=== PATIENT | female | born 1970 | race Caucasian/White ===

== ENCOUNTER → 2017-08-18 09:05 | Outpatient (CLI) | payer OTHER, SELFPAY | PROVIDERS: Visit Provider Internal Medicine Cardiovascular Disease | DX: R07.9 Chest pain, unspecified (principal) | CPT/HCPCS: 93306; Q9957; A4216; C8929 ==

== ENCOUNTER → 2018-07-11 21:15 | Outpatient (CLI) | payer OTHER, SELFPAY ==
[2018-07-11 19:52] VITALS: BMI 54.8
[2018-07-11 21:28] LABS: Absolute Lymphocyte Count 3.06 X10^3/ul (0.83-4.51); Absolute Neutrophil Count 5.8 X10^3/uL (2.0-7.7); Basophil# 0.04 X10^3/uL; Basophil% 0.4 % (0-1); Eosinophil# 0.26 X10^3/uL; Eosinophils% 2.7 % (0-5); Hematocrit 38.9 % (37-47); Hemoglobin 12.3 g/dl (12.0-15.0); Lymphocyte # 3.06 X10^3/ul (4.0); Lymphocyte % 31.3 % (19-41); Mean Corp Hgb Conc 31.6 g/gl (32-36); Mean Corpuscular Hgb 26.6 pg (27.0-32.0); Mean Corpuscular Volume 84.2 fL (81-99); Mean Platelet Vol. 10.5 fl (6.2-12.0); Monocyte# 0.56 X10^3/uL; Monocyte% 5.7 % (0-10); Neutrophil # 5.82 X10^3/uL (2.7-7.7); Neutrophil % 59.5 % (47-70); Platelet Count 438 K/mm3 (150-450); RBC Distribution Width CV 13.8 % (11.6-14.6); RBC Distribution Width SD 41.3 fl (35.1-43.9); Red Blood Count 4.62 M/mm3 (4.2-5.4); White Blood Count 9.8 K/mm3 (4.4-11.0)
[2018-07-11 21:30] LABS: POSITIVE COUNT NO; POSITIVE DIFFERENTIAL NO; POSITIVE MORPHOLOGY NO
[2018-07-11 21:40] LABS: ALB/GLOB Ratio 0.7 RATIO (0.9-2.4); AST(SGOT) 20 U/L (15-37); Alanine Aminotransfer ALT/SGPT 44 U/L (13-56); Albumin, Serum 3.4 g/dL (3.2-5.0); Alkaline Phosphatase 81 U/L (45-117); Anion Gap 3 (5-15); BUN 15 mg/dL (7-18); BUN/Creat Ratio 18.1 RATIO (10-20); Calcium,Total 8.6 mg/dL (8.5-10.1); Chloride 104 mmol/L (98-107); Creatinine, Serum 0.83 mg/dL (0.55-1.02); EST Glomerular Filtration Rate 79 mL/min (>60); Est Glom Filt Rate - Afr Amer 95 mL/min (>60); Globulin 4.8 g/dL (2.2-4.2); Glucose 78 mg/dL (74-106); Potassium 3.8 mmol/L (3.5-5.1); Protein, Total 8.2 g/dL (6.4-8.2); Sodium Level 136 mmol/L (136-145); Thyroid Stim Hormone (TSH) 3.76 uIU/mL (0.358-3.74)
== END ==
PROVIDERS: Family Provider Nurse Practitioner; PCP Nurse Practitioner; Referring Provider Nurse Practitioner; Visit Provider Nurse Practitioner
DX: R07.9 Chest pain, unspecified (principal); K30 Functional dyspepsia
CPT/HCPCS: 80053; 84443; 84484; 85025

== ENCOUNTER → 2018-08-24 23:15 | Outpatient (CLI) | payer OTHER, SELFPAY ==
[2018-08-07 17:04] VITALS: BMI 46.2
[2018-08-24 23:40] LABS: Thyroid Stim Hormone (TSH) 1.45 uIU/mL (0.358-3.74)
== END ==
PROVIDERS: Referring Provider Nurse Practitioner; Visit Provider Nurse Practitioner
DX: E03.9 Hypothyroidism, unspecified (principal)
CPT/HCPCS: 84443

== ENCOUNTER → 2018-09-10 23:50 | Outpatient (CLI) | payer OTHER, SELFPAY ==
[2018-09-10 20:08] VITALS: BMI 45.2
[2018-09-11 00:44] LABS: Absolute Lymphocyte Count 2.33 X10^3/ul (0.83-4.51); Absolute Neutrophil Count 3.7 X10^3/uL (2.0-7.7); Basophil# 0.04 X10^3/uL; Basophil% 0.6 % (0-1); Eosinophil# 0.27 X10^3/uL; Hematocrit 38.7 % (37-47); Hemoglobin 12.3 g/dl (12.0-15.0); Lymphocyte # 2.33 X10^3/ul (4.0); Lymphocyte % 34.3 % (19-41); Mean Corp Hgb Conc 31.8 g/gl (32-36); Mean Corpuscular Hgb 26.8 pg (27.0-32.0); Mean Corpuscular Volume 84.3 fL (81-99); Mean Platelet Vol. 11.5 fl (6.2-12.0); Monocyte# 0.46 X10^3/uL; Monocyte% 6.8 % (0-10); Neutrophil # 3.68 X10^3/uL (2.7-7.7); Neutrophil % 54.2 % (47-70); POSITIVE COUNT NO; POSITIVE DIFFERENTIAL NO; POSITIVE MORPHOLOGY NO; Platelet Count 409 K/mm3 (150-450); RBC Distribution Width CV 14.1 % (11.6-14.6); RBC Distribution Width SD 42.6 fl (35.1-43.9); Red Blood Count 4.59 M/mm3 (4.2-5.4); White Blood Count 6.8 K/mm3 (4.4-11.0)
[2018-09-11 00:47] LABS: Erythrocyte Sedimentation Rate 24 mm/hr (0-20)
--- OUTSIDE RECORDS SUMMARY | 2018-11-13 05:49 | XMS RPT_ITS ---
:1970 Author Organization OH[facility] Care Team Providers Name Role Phone Candy Gallo MANAGER GENERATION-C Attending Unavailable Gallo, Candy MANAGER GENERATION-C Primary Care Unavailable Gallo Candy MANAGER GENERATION-C Referring Unavailable Gallo Candy MANAGER GENERATION-C Attending Unavailable Gallo Candy MANAGER GENERATION-C Attending Unavailable Gallo, Candy MANAGER GENERATION-C Referring Unavailable Gallo, Candy MANAGER GENERATION-C Primary Care Unavailable Kai Brock Attending Unavailable DOCTOR, OUT OF TOWN Referring Unavailable PROBLEMS PROBLEMS DATE TYPE CONDITION / CODE ATTENDING STATUS SOURCE 08/27/2018 Unknown E03.9 - Gallo, Active [place] Hypothyroidism, Candy MANAGER GENERATION-C Community unspecified / Hospital E03.9(ICD-10) Repository 07/12/2018 Unknown R07.9 - Chest Gallo, Active [place] pain, unspecified Candy MANAGER GENERATION-C Community / R07.9(ICD-10) Hospital Repository 07/12/2018 Unknown K30 - Functional Gallo, Active [place] dyspepsia / Candy MANAGER GENERATION-C [facility] K30(ICD-10) Hospital Repository PROCEDURES PROCEDURES No Procedure Records FoundRESULTS RESULTS OFFICE VISIT Observed: 09/10/2018 Status: F Source: [place] 8:16 PM [facility] REPOSITORY After Hours [facility] [address] [place] [address] OFFICE VISIT Date of Service: 09/10/18 MR#: [id number] Acct: [id number] Name: ASH GRIGSBY Rep #: [id number] : 1970 Provider: ADRIAN Gallo Age/Sex: 48/F Location: [facility] Status: Signed Intake Vital Signs09/10/18 Height 5 ft 7 in 09/10/18 Weight: 289 lb Intake Visit Reasons: DIZZY/EAR Accompanied by: self Is patient in pain?: No Allergies aspirin Allergy (Severe, Verified 09/10/18 20:09) facial swelling cortisone Allergy (Verified 07/26/18 09:46) Itching Medications albuterol sulfate HFA 90 mcg/actuation aerosol inhaler 2 puff INHALATION Q6H #8.5 g 07/11/18 [Rx Confirmed 07/26/18] lansoprazole 30 mg capsule,delayed release 30 mg PO BID 07/26/18 [History Confirmed 07/26/18] amoxicillin 875 mg-potassium clavulanate 125 mg tablet 1 tab PO Q12H #20 tab 08/07/18 [Rx Confirmed 08/07/18] fluoxetine 20 mg capsule 40 mg PO DAILY #180 cap 08/07/18 [Rx Confirmed 08/07/18] levothyroxine 75 mcg tablet 75 mcg PO DAILY #90 tab 09/04/18 [Rx] prednisone 20 mg tablet 40 mg PO DAILY #14 tab 09/10/18 [Rx Confirmed 09/10/18] Is last menstrual period known: Yes Post menopausal: No Patient : No PFSH Medical History Mixed hyperlipidemia (Acute) Torn meniscus (Acute) Anxiety (Chronic) GERD (gastroesophageal reflux disease) (Chronic) Surgical History S/P arthroscopy of knee (Acute) Hx of cholecystectomy (Resolved) Family History Mother CAD (coronary artery disease) Other Cancer Diverticulitis Heart disease High cholesterol Hypertension Pacemaker Social History Smoking Status: Never smoker alcohol intake: current alcohol intake frequency: holidays/special occasions only HPI HPI (General) HPI HPI: ASH GRIGSBY, is a 48 F who presents to the office today for dizziness and sweating and had a sinus infection not too long ago. tingling in the R cheek for a few weeks . ROS Musc Musculoskeletal: Positive for tingling (L side of the cheek) Neuro Neurology: Positive for tingling (L side of the cheek) Exam Const Constitutional: Yes cooperative, Yes healthy appearing Orientation: Yes alert, awake and oriented x3 HENMT Head: Yes normocephalic Ear: Yes hearing grossly normal bilaterally Neck Neck: normal visual inspection Thyroid: thyroid normal Eyes General: Yes appearance normal, both eyes and all related structures Chest Chest palpation AND inspection: Yes normal inspection of the chest Resp Effort AND Inspection: Yes normal respiratory effort Auscultation: Yes clear to auscultation bilaterally Cardio Palpitation: Yes normal PMI Rate: Yes regular rate Rhythm: Yes regular rhythm GI Inspection: Yes normal to inspection Auscultation: Yes normal bowel sounds Musc Cervical Spine: Yes cervical ROM normal Thoracic/Lumbar Spine: Yes thoracic and lumbar spine normal to inspection Skin General: no rashes or lesions noted Lesions: Yes no lesions Extrem General: Yes normal to inspection Neuro General: Yes alert and oriented x3 Psych Appearance: Positive grossly normal Mood: Positive congruent mood Affect: Positive normal affect Assessment AND Plan Problems 1. 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 Dizziness R42 09/10/182015 <Electronically signed by Candy THOMAS> Date Candy THOMAS CC: CBC W/DIFF, AUTOMATED Collected: 09/10/2018 Status: F Source: [place] 4:10 PM [facility] REPOSITORY TYPE CODE TESTS RESULT OUT OF RANGE REFERENCE UNITS LAB L100.1000 4.4-11.0 K/mm3 Normal WBC 6.8 LAB L100.1200 4.2-5.4 M/mm3 Normal RBC 4.59 LAB L100.1300 12.0-15.0 g/dl Normal HGB 12.3 LAB L100.1400 37-47 % Normal HCT 38.7 LAB L100.1500 81-99 fL Normal MCV 84.3 LAB L100.1600 27.0-32.0 pg Low MCH 26.8 LAB L100.1700 32-36 g/gl Low MCHC 31.8 LAB L100.1810 11.6-14.6 % Normal RDW CV 14.1 LAB L100.1820 35.1-43.9 fl Normal RDW SD 42.6 LAB L100.1900 150-450 K/mm3 Normal PLT 409 LAB L100.2000 6.2-12.0 fl Normal MPV 11.5 LAB L100.2100 47-70 % Normal NEUT% 54.2 LAB L100.2200 19-41 % Normal LY% 34.3 LAB L100.2300 0-10 % Normal MONO% 6.8 LAB L100.2400 0-5 % Normal EO% 4.0 LAB L100.2500 0-1 % Normal BASO% 0.6 LAB L100.2550 0.0-0.9 % Normal IM GRAN % 0.100 Result Comment: IG% - Immature Granulocytes (promyelocytes, myelocytes and metamyelocytes) > 1% indicates that a LEFT SHIFT is Present. LAB L100.2620 2.0-7.7 X10 3/uL Normal Absolute Neut 3.7 LAB L100.2720 0.83-4.51 X10 3/ul Normal Absolute Lymph 2.33 Performed By: #### L100.0100, L101.9900 #### [facility] [address] [place], [address] ERYTHROCYTE SED RATE Collected: 09/10/2018 Status: F Source: [place] 4:10 PM [facility] REPOSITORY TYPE CODE TESTS RESULT OUT OF RANGE REFERENCE UNITS LAB L102.0000 0-20 mm/hr High SED RATE 24 Performed By: #### L100.0100, L101.9900 #### [facility] [address] [place], [address] OFFICE VISIT Observed: 09/03/2018 Status: F Source: [place] 2:31 PM [facility] REPOSITORY [facility] [address] [place] [address] OFFICE VISIT Date of Service: 08/24/18 MR#: [id number] Acct: [id number] Name: ASH GRIGSBY Rep #: [id number] : 1970 Provider: ADRIAN Gallo Age/Sex: 48/F Location: [facility] Status: Signed Intake Intake Visit Reasons: TSH DX:HYPOTHYROID Allergies cortisone Allergy (Verified 07/26/18 09:46) Itching Medications albuterol sulfate HFA 90 mcg/actuation aerosol inhaler 2 puff INHALATION Q6H #8.5 g 07/11/18 [Rx Confirmed 07/26/18] levothyroxine 75 mcg tablet 75 mcg PO DAILY #30 tab 07/13/18 [Rx Confirmed 07/26/18] lansoprazole 30 mg capsule,delayed release 30 mg PO BID 07/26/18 [History Confirmed 07/26/18] amoxicillin 875 mg-potassium clavulanate 125 mg tablet 1 tab PO Q12H #20 tab 08/07/18 [Rx Confirmed 08/07/18] fluoxetine 20 mg capsule 40 mg PO DAILY #180 cap 08/07/18 [Rx Confirmed 08/07/18] PFSH Medical History Mixed hyperlipidemia (Acute) Anxiety (Chronic) GERD (gastroesophageal reflux disease) (Chronic) Surgical History Hx of cholecystectomy (Resolved) Family History Mother CAD (coronary artery disease) Social History Smoking Status: Never smoker alcohol intake: current alcohol intake frequency: holidays/special occasions only HPI HPI (General) HPI HPI: ASH GRIGSBY, is a 48 F who presents to the office today for Assessment AND Plan Orders Orders: Coding Level of Care Code No Charge 09/03/18 1431 <Electronically signed by Candy THOMAS> Date Candy THOMAS CC: THYROID STIM HORMONE Collected: 08/24/2018 Status: F Source: [place] (TSH) 5:00 PM [facility] REPOSITORY TYPE CODE TESTS RESULT OUT OF RANGE REFERENCE UNITS LAB L501.9520 0.358-3.74 uIU/mL Normal TSH 1.45 Performed By: #### L501.9520 #### [facility] [address] [place], [address] OFFICE VISIT Observed: 08/07/2018 Status: F Source: [place] 8:29 PM [facility] REPOSITORY After Hours Family [facility] [address] [place] [address] OFFICE VISIT Date of Service: 08/07/18 MR#: [id number] Acct: [id number] Name: ASH GRIGSBY Rep #: [id number] : 1970 Provider: ADRIAN Gallo Age/Sex: 48/F Location: F Status: Signed Intake Vital Signs08/07/18 Height 5 ft 7 in 08/07/18 Weight: 295 lb Intake Visit Reasons: Sinus infection Accompanied by: self Is patient in pain?: No Allergies cortisone Allergy (Verified 07/26/18 09:46) Itching Medications albuterol sulfate HFA 90 mcg/actuation aerosol inhaler 2 puff INHALATION Q6H #8.5 g 07/11/18 [Rx Confirmed 07/26/18] levothyroxine 75 mcg tablet 75 mcg PO DAILY #30 tab 07/13/18 [Rx Confirmed 07/26/18] lansoprazole 30 mg capsule,delayed release 30 mg PO BID 07/26/18 [History Confirmed 07/26/18] amoxicillin 875 mg-potassium clavulanate 125 mg tablet 1 tab PO Q12H #20 tab 08/07/18 [Rx Confirmed 08/07/18] fluconazole 150 mg tablet 150 mg PO Q3D 0 Days #2 tab 08/07/18 [Rx Confirmed 08/07/18] fluoxetine 20 mg capsule 40 mg PO DAILY #180 cap 08/07/18 [Rx Confirmed 08/07/18] PFSH Medical History Mixed hyperlipidemia (Acute) Anxiety (Chronic) GERD (gastroesophageal reflux disease) (Chronic) Surgical History Hx of cholecystectomy (Resolved) Family History Mother CAD (coronary artery disease) Social History Smoking Status: Never smoker alcohol intake: current alcohol intake frequency: holidays/special occasions only HPI HPI (General) HPI HPI: ASH GRIGSBY, is a 48 F who presents to the office today for sinus infection and ears and neck hurt for 4-5 days . using DayQuil and advil for the pain . also needs fluoxetine reordered doing well on the 20 but thinks it may need to go up . Also discussed she is tired all the time and told her again she is a little anemic ROS Const Constitutional: Positive for chills, fever(s), body ache, fatigue, decreased energy, weakness and headache(s) ENT ENT: Positive for ear pain, dizziness/vertigo, nasal congestion, nasal discharge, post nasal drip, headache(s) and sore throat Neuro Neurology: Positive for weakness and headache(s) Endo Endo: Yes fatigue Exam Const Constitutional: Yes cooperative, Yes healthy appearing Orientation: Yes alert, awake and oriented x3 HENMT Head: Yes normocephalic Ear: Yes hearing grossly normal bilaterally TM-Right: normal TM-Left: red Pinna-Right: within normal limits Pinna-Left: within normal limits Face: Yes sinus tenderness Nose: Yes external nose normal Mouth: Yes oral mucosae normal Teeth and Gingiva: Yes dentition normal Throat: Yes posterior oropharynx normal Neck Neck: normal visual inspection Thyroid: thyroid normal Eyes General: Yes appearance normal, both eyes and all related structures Chest Chest palpation AND inspection: Yes normal inspection of the chest Resp Effort AND Inspection: Yes normal respiratory effort Auscultation: Yes clear to auscultation bilaterally Cardio Palpitation: Yes normal PMI Rate: Yes regular rate Rhythm: Yes regular rhythm GI Inspection: Yes normal to inspection Auscultation: Yes normal bowel sounds Musc Cervical Spine: Yes cervical ROM normal Thoracic/Lumbar Spine: Yes thoracic and lumbar spine normal to inspection Skin General: no rashes or lesions noted Lesions: Yes no lesions Extrem General: Yes normal to inspection Neuro General: Yes alert and oriented x3 Motor: weakness Psych Appearance: Positive grossly normal Mood: Positive congruent mood Affect: Positive normal affect Assessment AND Plan Problems 1. Left acute otitis media H66.92 2. Acute non-recurrent maxillary sinusitis J01.00 3. Iron deficiency anemia, unspecified iron deficiency anemia type D50.9 4. Anxiety F41.9 Patient Instructions Take the antibiotics till gone with food or after eating Take the fluconazole as needed Take iron pills 65 mg 2 x a day ( colace 100 mg orally 1- 2 with the iron pills ) Try increasing the fluoxetine to 2 a day Medications New: Coding Level of Care Code Off vis,est,level 3 Diagnoses Left acute otitis media H66.92 Acute non-recurrent maxillary sinusitis J01.00 Chronicity: acute Recurrence: non-recurrent Iron deficiency anemia, unspecified iron deficiency anemia type D50.9 Anemia type: iron deficiency Iron deficiency anemia type: unspecified iron deficiency Anxiety F41.9 08/07/182028 <Electronically signed by Candy THOMAS> Date Candy THOMAS CC: CARDIOLOGY VISIT Observed: 07/26/2018 Status: F Source: [place] REPORT 10:05 AM [facility] REPOSITORY [facility] [address] [place] [address]. [address] [place] [address] OFFICE VISIT Date of Service: 07/26/18 MR#: [id number] Acct: [id number] Name: ASH GRIGSBY Rep #: [id number] : 1970 Provider: Kai Brock MD Age/Sex: 48/F Location: [facility] Status: Signed HPI HPI Chief Complaint: Follow-up visit Details: ASH GRIGSBY, is a 48 F who presents to the office today for a follow-up cardiovascular visit. She is a lady with a significant family history of cardiac disease who had seen as in July 2017 with a complaint of her shortness of breath. Her exam at that time was noted to be normal and she underwent an echocardiographic exam which demonstrated preserved ejection fraction of 55%. No wall motion abnormalities were noted. She has had no neck, jaw discomfort suggest angina no dizziness or diaphoresis no near syncope or syncope. She tells me that she just saw you recently an EKG was performed which demonstrated sinus rhythm with a rate of 83 bpm and no acute changes noted. Her physical exam here today demonstrates clear lung jang regular rate and rhythm and no pedal edema. Intake Vital Signs07/26/18 Height 5 ft 7 in 07/26/18 Weight: 299 lb 07/26/18 Body Mass Index (BMI) 46.8 07/26/18 Blood Pressure 132/88 H 07/26/18 Blood Pressure Location Lt brachial Intake Visit Reasons: 1 Y FU Feather Baler Required: No Accompanied by: none Is patient in pain?: No Allergies cortisone Allergy (Verified 07/26/18 09:46) Itching Medications albuterol sulfate HFA 90 mcg/actuation aerosol inhaler 2 puff INHALATION Q6H #8.5 g 07/11/18 [Rx Confirmed 07/26/18] levothyroxine 75 mcg tablet 75 mcg PO DAILY #30 tab 07/13/18 [Rx Confirmed 07/26/18] fluoxetine 20 mg capsule 40 mg PO DAILY cap 07/26/18 [History] lansoprazole 30 mg capsule,delayed release 30 mg PO BID 07/26/18 [History Confirmed 07/26/18] PFSH Medical History Mixed hyperlipidemia (Acute) Anxiety (Chronic) GERD (gastroesophageal reflux disease) (Chronic) Surgical History Hx of cholecystectomy (Resolved) Family History Mother CAD (coronary artery disease) Social History Smoking Status: Never smoker alcohol intake: current alcohol intake frequency: holidays/special occasions only ROS Const Const: Negative for fatigue, weakness, night sweats, excessive sweating, frequent falls, headache(s) or daytime sleepiness Eyes Eyes: Negative for loss of peripheral vision, transient loss of vision, blind spots, double vision or blurry vision ENT ENT: Negative for headache(s), dizziness, balance problems, Nosebleed/epistaxis, tongue swelling or lip swelling Cardio Chest Pain: No Palpitations: No Edema: Bilateral Muscle aches with walking: None Resp Respiratory: Positive for other (Patient states she feels like she cant get a deep breath); negative for SOB at rest, SOB orthopnea\SOB lying down, Cough, paroxysmal nocturnal dyspnea or SOB with activity GI GI: Negative nausea, vomiting, heartburn, black,tarry stools or bright, red blood in stools : Negative for hematuria Musc Musc: Negative for balance problems, muscle aches/ myalgia, muscle weakness or joint pain Skin Skin: Negative non-healing lesions, unusual bruising or rash Neuro Neuro: Negative for weakness, frequent falls, headache(s), double vision, dizziness, lightheadedness, orthostatic symptoms, blurry vision or lack of coordination Bull Hematologic/Lymphatic: Negative for easy bruising or easy bleeding Endo Endo: Negative for fatigue, excessive sweating, cold intolerance, heat intolerance, increased thirst/drinking or hair loss Psych Psych: Negative for anxiety or depression Allergy Allergy/Immunology: Negative for throat swelling, Negative for tongue swelling, Negative for hives, Negative for rash, Negative for lip swelling Assessment AND Plan 1. Dyspnea on exertion R06.09 Plan She does have some dyspnea on exertion. However the above appears to be not secondary to any cardiac issues. Her last echocardiogram was reassuring with an estimated ejection fraction of 55%. My recommendation be to continue the same without making any changes. Thank you for allowing me to participate in the care of your patient. Please don't hesitate to call if any issues arise Plan Detail Other Medications New: Follow Up prn Coding Level of Care Code Off vis,est,level 3 Diagnoses Dyspnea on exertion R06.09 Dyspnea type: dyspnea on exertion Coding Level of Care Code Off vis,est,level 3 Diagnoses Dyspnea on exertion R06.09 Dyspnea type: dyspnea on exertion 07/26/18 1005 <Electronically signed by Kai Brock MD> Date Kai Brock MD Cosigner Signature: Date (if applicable) CC: ADRIAN Gallo; OUT OF TOWN DOCTOR OFFICE VISIT Observed: 07/11/2018 Status: F Source: [place] 8:26 PM [facility] REPOSITORY After Hours [place] [address] [place] [address] OFFICE VISIT Date of Service: 07/11/18 MR#: [id number] Acct: [id number] Name: ASH GRIGSBY Rep #: [id number] : 1970 Provider: ADRIAN Gallo Age/Sex: 47/F Location: [facility] Status: Signed Intake Vital Signs07/11/18 Height 5 ft 7 in 07/11/18 Weight: 350 lb Intake Visit Reasons: Chest pain Allergies cortisone Allergy (Verified 08/18/17 10:17) Itching Medications albuterol sulfate HFA 90 mcg/actuation aerosol inhaler 2 puff INHALATION Q6H #8.5 g 07/11/18 [Rx Confirmed 07/11/18] fluoxetine 20 mg capsule 20 mg PO DAILY #30 cap 07/11/18 [Rx Confirmed 07/11/18] PFSH Medical History Mixed hyperlipidemia (Acute) Anxiety (Chronic) GERD (gastroesophageal reflux disease) (Chronic) Surgical History Hx of cholecystectomy (Resolved) Family History Mother CAD (coronary artery disease) Social History Smoking Status: Never smoker alcohol intake: current alcohol intake frequency: holidays/special occasions only HPI HPI (General) HPI HPI: ASH GRIGSBY, is a 47 F who presents to the office today for chest pain that is relieved with zantac 300 mg orally at bedtime. But she is worried and questions if her anxiety could be causing this too? I suggested restarting her anxiety meds. She is tender in the epigastric area on palpation. A very close friend just at a 53. ROS Gastro GI: Yes nausea/dyspepsia Psych Psychiatric: Positive for anxiety Exam Const Constitutional: Yes cooperative, Yes healthy appearing Nutritional Appearance: Yes overweight and obese Orientation: Yes alert, awake and oriented x3 HENMT Head: Yes normocephalic Ear: Yes hearing grossly normal bilaterally Neck Neck: normal visual inspection Thyroid: thyroid normal Eyes General: Yes appearance normal, both eyes and all related structures Chest Chest palpation AND inspection: Yes normal inspection of the chest Resp Effort AND Inspection: Yes normal respiratory effort Auscultation: Yes clear to auscultation bilaterally Cardio Palpitation: Yes normal PMI Rate: Yes regular rate Rhythm: Yes regular rhythm GI Inspection: Yes normal to inspection Auscultation: Yes normal bowel sounds Palpation: Yes soft, no hepatosplenomegaly and other (rotund abd) Musc Cervical Spine: Yes cervical ROM normal Thoracic/Lumbar Spine: Yes thoracic and lumbar spine normal to inspection Skin General: no rashes or lesions noted Lesions: Yes no lesions Extrem General: Yes normal to inspection Neuro General: Yes alert and oriented x3 Psych Appearance: Positive grossly normal Mood: Positive congruent mood Affect: Positive normal affect and anxious affect Assessment AND Plan Problems 1. Other chest pain R07.89; R07.8 2. Indigestion K30 3. Morbid (severe) obesity due to excess calories E66.01 Patient Instructions Will call with the results of the labs drawn will fax ekg to Dr brock office jul 26 start the prozac again and see if helps continue the 300 mg zantac at bed time for 1 more week Orders Orders: Medications New: Coding Level of Care Code Off vis,est,level 4 Diagnoses Other chest pain R07.89; R07.8 Chest pain type: other chest pain Indigestion K30 Morbid (severe) obesity due to excess calories E66.01 07/11/182025 <Electronically signed by Candy MANTILLAC> Date Candy THOMAS CC: CBC W/DIFF, AUTOMATED Collected: 07/11/2018 Status: F Source: [place] 5:00 PM [facility] REPOSITORY TYPE CODE TESTS RESULT OUT OF RANGE REFERENCE UNITS LAB L100.1000 4.4-11.0 K/mm3 Normal WBC 9.8 LAB L100.1200 4.2-5.4 M/mm3 Normal RBC 4.62 LAB L100.1300 12.0-15.0 g/dl Normal HGB 12.3 LAB L100.1400 37-47 % Normal HCT 38.9 LAB L100.1500 81-99 fL Normal MCV 84.2 LAB L100.1600 27.0-32.0 pg Low MCH 26.6 LAB L100.1700 32-36 g/gl Low MCHC 31.6 LAB L100.1810 11.6-14.6 % Normal RDW CV 13.8 LAB L100.1820 35.1-43.9 fl Normal RDW SD 41.3 LAB L100.1900 150-450 K/mm3 Normal PLT 438 LAB L100.2000 6.2-12.0 fl Normal MPV 10.5 LAB L100.2100 47-70 % Normal NEUT% 59.5 LAB L100.2200 19-41 % Normal LY% 31.3 LAB L100.2300 0-10 % Normal MONO% 5.7 LAB L100.2400 0-5 % Normal EO% 2.7 LAB L100.2500 0-1 % Normal BASO% 0.4 LAB L100.2550 0.0-0.9 % Normal IM GRAN % 0.400 Result Comment: IG% - Immature Granulocytes (promyelocytes, myelocytes and metamyelocytes) > 1% indicates that a LEFT SHIFT is Present. LAB L100.2620 2.0-7.7 X10 3/uL Normal Absolute Neut 5.8 LAB L100.2720 0.83-4.51 X10 3/ul Normal Absolute Lymph 3.06 Performed By: #### L100.0100, L500.4050, L501.4010, L501.9520 #### [facility] [address] [place], [address] COMPREHENSIVE METABOLIC Collected: 07/11/2018 Status: F Source: [facility] 5:00 PM [facility] REPOSITORY Order Comment: 'TROP' Serial specimen #1, #2, #3, or #4: 1 TYPE CODE TESTS RESULT OUT OF RANGE REFERENCE UNITS LAB L501.0100 74-106 mg/dL Normal GLU 78 Result Comment: Please note revised GLUCOSE reference range effective 2017. LAB L501.1000 7-18 mg/dL Normal BUN 15 LAB L501.1100 0.55-1.02 mg/dL Normal CREAT,SERUM 0.83 Result Comment: The validity of the calculated GFR AND GFRAA in patients over 70 years has not been determined. Clinical correlation is essential. LAB L501.1110 >60 mL/min Normal EST GFR 79 Result Comment: Non- GFR Calc LAB L501.1115 >60 mL/min Normal EST GFR - AA 95 Result Comment: GFR Calc LAB L501.1300 10-20 RATIO Normal BUN/CRE 18.1 LAB L501.1500 6.4-8.2 g/dL T Normal PROT 8.2 LAB L501.1800 3.2-5.0 g/dL Normal ALB 3.4 LAB L501.1950 2.2-4.2 g/dL High GLOB 4.8 LAB L501.2000 0.9-2.4 RATIO Low A/G 0.7 LAB L501.2200 8.5-10.1 mg/dL CA Normal 8.6 LAB L501.4100 15-37 U/L Normal AST 20 LAB L501.4305 45-117 U/L Normal ALK P 81 LAB L501.4405 13-56 U/L Normal ALT 44 LAB L501.4600 0.20-1.00 mg/dL T Normal BILI 0.30 LAB L501.5300 136-145 mmol/L NA Normal 136 LAB L501.5600 3.5-5.1 mmol/L K Normal 3.8 LAB L501.5900 98-107 mmol/L CL Normal 104 LAB L501.6100 21.0-32.0 mmol/L Normal CO2 29.0 LAB L501.6200 5-15 Low GAP 3 Performed By: #### L100.0100, L500.4050, L501.4010, L501.9520 #### [facility] [address] [place], [place], [address] TROPONIN-I Collected: 07/11/2018 Status: F Source: [place] 5:00 PM [facility] REPOSITORY Order Comment: 'TROP' Serial specimen #1, #2, #3, or #4: 1 TYPE CODE TESTS RESULT OUT OF RANGE REFERENCE UNITS LAB L501.4010 <0.045 ng/mL Normal < 0.015 TROPONIN-I Result Comment: TROPONIN-I EXPECTED VALUES <0.045 Negative 0.045 - 0.590 Consistent with Cardiac Damage > OR = 0.600 Critical Value Not every elevated troponin is indicative of SD. These values should be used with clinical judgement in examining the patient's clinical picture for diagnosis. To establish a diagnosis of SD versus myocardial injury, there must be a demonstrated rise and/or fall in the troponin values, in addition to ischemic symptoms, EKG changes, new regional wall motion abnormality, and/or angiographical evidence. PLEASE NOTE: REFERENCE RANGES EDITED 18 Performed By: #### L100.0100, L500.4050, L501.4010, L501.9520 #### [facility] [address] [place], [address] THYROID STIM HORMONE Collected: 07/11/2018 Status: F Source: [place]UP[place] (TSH) 5:00 PM [facility] REPOSITORY Order Comment: 'TROP' Serial specimen #1, #2, #3, or #4: 1 TYPE CODE TESTS RESULT OUT OF RANGE REFERENCE UNITS LAB L501.9520 0.358-3.74 uIU/mL High TSH 3.76 Performed By: #### L100.0100, L500.4050, L501.4010, L501.9520 #### [facility] [address] [place], [address] ALLERGIES ALLERGIES DATE TYPE / CODE NAME / CODE REACTION SEVERITY SOURCE 09/10/2018 Drug aspirin/F006 facial swelling SV [facility] Allergy/4160 [id number]([facility] 57140(SNOMED M) Repository CT) 07/26/2018 Drug cortisone/F0 Itching Unknown [facility] Allergy/4160 [id number]([facility] [address]108(SNOMED ORM) Repository CT) ENCOUNTERS ENCOUNTERS ADMIT/DISCHARGE ACCOUNT ADMITTING ENCOUNTER LOCATION SOURCE NUMBER CLASS 09/10/2018 [id number] [place] [facility] ing:LABSPEC Repository 08/24/2018 [id number] Ambulatory [place] 2 [facility] ing:LABSPEC Repository 07/26/2018/ [id number] Ambulatory BMS[facility]:B [place] 8 8 [facility] Repository 07/11/2018 [id number] Ambulatory [place] 1 [facility] ing:LABSPEC Repository PAYERS PAYERS ENCOUNTER GUARANTOR PAYER SUBSCRIBER SOURCE 09/10/2018 BEA FLOWER Primary Insurance:ZAYNAB [place] [facility] PAULINAB: [place], [place] Number: [id number] [facility] [address]Ejd: (978) [id number] Repository [phone] () Date:2899-11-93[address]X [address], [place] [address]NK: CHECK WEBSITE 09/10/2018 Secondary NOT GIVENUNK [place] Insurance:SELF PAY [facility] Number: Effective Repository Date:2018-09-10 08/24/2018 BEA L [id number] Primary Insurance:MED BEA YUN [facility] [place] Number: [id number] Hospital [address]Lzc: 330 [id number] Repository [phone] () Date:4731-82-07SP [address], [place] [address]BA: CHECK WEBSITE 08/24/2018 Secondary NOT GIVENUNK [place] Insurance:SELF PAY [facility] Number: Effective Repository Date:2018-08-24 07/26/2018 BEA Antoinette [id number] Primary Insurance:MED [facility] [place] Number: [id number] Hospital [address]Dkv: 330 [id number] Repository [phone] () Date:5098-41-49JS [address], [place] [address]OM: CHECK WEBSITE 07/26/2018 Secondary NOT GIVENUNK [place] Insurance:SELF PAY [facility] Number: Effective Repository Date:2018-07-26 07/11/2018 BEA L [id number] Primary [facility] [place] Number: [id number] Hospital [address]Wqs: 330 [id number] Repository [phone] () Date:1089-05-07BD [address], [place] [address]WN: CHECK WEBSITE 07/11/2018 Secondary NOT GIVENUNK [place] Insurance:SELF PAY [facility] Number: Effective Repository Date:2018-07-11
== END ==
PROVIDERS: Visit Provider Nurse Practitioner
DX: G51.0 Bell's palsy (principal); R20.2 Paresthesia of skin
CPT/HCPCS: 85025; 85652

== ENCOUNTER → 2018-12-10 17:21 | Outpatient (CLI) | payer OTHER, SELFPAY ==
[2018-11-20 15:38] VITALS: BMI 47.4
--- NOTE | 2018-12-10 17:29 | RAD_ITS ---
STUDY: X-RAY - CERVICAL SPINE REASON FOR EXAM: Female, 48 years old. Neck pain TECHNIQUE: 6 view(s) of the cervical spine were obtained. COMPARISON: None FINDINGS: Normal anterior atlantoaxial articulation. Normal odontoid process. Normal cervical lordosis. Normal vertebral bodies and endplates. Normal disc space heights. Normal visualized intervertebral neuroforamina. The soft tissue structures are unremarkable. RAD/Cerv Spine 4 or 5 Views IMPRESSION: Normal x-ray examination of the visualized cervical spine. No fracture. No disc disease. Electronically Signed: Dennis Mario MD at 5:09 EDT Tel , Service support ,
== END ==
PROVIDERS: Family Provider Nurse Practitioner; PCP Nurse Practitioner; Referring Provider Nurse Practitioner; Visit Provider Nurse Practitioner
DX: M79.2 Neuralgia and neuritis, unspecified (principal); M54.2 Cervicalgia
CPT/HCPCS: 72050

== ENCOUNTER → 2019-08-22 21:54 | Outpatient (CLI) | payer OTHER, SELFPAY ==
[2019-08-22 17:32] VITALS: BMI 45.8
[2019-08-22 22:04] LABS: Absolute Lymphocyte Count 2.67 X10^3/uL (0.83-4.51); Absolute Neutrophil Count 3.4 X10^3/uL (2.0-7.7); Basophil# 0.07 X10^3/uL; Eosinophils% 4.4 % (0-5); Hematocrit 38.8 % (37-47); Hemoglobin 11.8 g/dL (12.0-15.0); Lymphocyte # 2.67 X10^3/ul (4.0); Lymphocyte % 38.9 % (19-41); Mean Corp Hgb Conc 30.4 g/dL (32-36); Mean Corpuscular Hgb 26.4 pg (27.0-32.0); Mean Corpuscular Volume 86.8 fL (81-99); Mean Platelet Vol. 11.4 fl (6.2-12.0); Monocyte# 0.41 X10^3/uL; NRBC Flagged by Analyzer 0 % (0-5); Neutrophil # 3.41 X10^3/uL (2.7-7.7); Neutrophil % 49.6 % (47-70); Platelet Count 405 K/mm3 (150-450); RBC Distribution Width CV 13.6 % (11.6-14.6); RBC Distribution Width SD 43.6 fl (35.1-43.9); Red Blood Count 4.47 M/mm3 (4.2-5.4); White Blood Count 6.9 K/mm3 (4.4-11.0)
[2019-08-22 22:22] LABS: ALB/GLOB Ratio 0.8 RATIO (0.9-2.4); AST(SGOT) 16 U/L (15-37); Alanine Aminotransfer ALT/SGPT 27 U/L (13-56); Albumin, Serum 3.3 g/dL (3.2-5.0); Alkaline Phosphatase 79 U/L (45-117); Anion Gap 3 (5-15); BUN 18 mg/dL (7-18); BUN/Creat Ratio 21.6 RATIO (10-20); Calcium,Total 8.3 mg/dL (8.5-10.1); Chloride 106 mmol/L (98-107); Cholesterol 190 mg/dL (200); Creatinine, Serum 0.84 mg/dL (0.55-1.02); EST Glomerular Filtration Rate 78 mL/min (>60); Est Glom Filt Rate - Afr Amer 94 mL/min (>60); Globulin 4.4 g/dL (2.2-4.2); Glucose 78 mg/dL (74-106); High Density Lipoprotein 30 mg/dL; Potassium 4.5 mmol/L (3.5-5.1); Protein, Total 7.7 g/dL (6.4-8.2); Sodium Level 138 mmol/L (136-145); Thyroid Stim Hormone (TSH) 1.74 uIU/mL (0.358-3.74); Triglycerides 220 mg/dL; Very Low Density Lipoprotein 44 mg/dL (5-40)
== END ==
PROVIDERS: Family Provider Nurse Practitioner; PCP Nurse Practitioner; Referring Provider Nurse Practitioner; Visit Provider Nurse Practitioner
DX: E78.2 Mixed hyperlipidemia (principal); E03.9 Hypothyroidism, unspecified
CPT/HCPCS: 80053; 80061; 84443; 85025

== ENCOUNTER → 2020-08-12 22:13 | Outpatient (CLI) | payer OTHER, SELFPAY ==
[2020-08-12 15:40] VITALS: BMI 45.4
[2020-08-12 22:23] LABS: Absolute Lymphocyte Count 1.96 X10^3/uL (0.83-4.51); Absolute Neutrophil Count 4.6 X10^3/uL (2.0-7.7); Basophil# 0.05 X10^3/uL; Basophil% 0.7 % (0-1); Eosinophil# 0.22 X10^3/uL; Hematocrit 39.2 % (37-47); Lymphocyte # 1.96 X10^3/ul (4.0); Lymphocyte % 26.7 % (19-41); Mean Corp Hgb Conc 30.6 g/dL (32-36); Mean Corpuscular Hgb 26.8 pg (27.0-32.0); Mean Corpuscular Volume 87.5 fL (81-99); Mean Platelet Vol. 11.2 fl (6.2-12.0); Monocyte# 0.46 X10^3/uL; Monocyte% 6.3 % (0-10); NRBC Flagged by Analyzer 0 % (0-5); Neutrophil # 4.63 X10^3/uL (2.7-7.7); Platelet Count 448 K/mm3 (150-450); RBC Distribution Width CV 13.4 % (11.6-14.6); RBC Distribution Width SD 42.9 fl (35.1-43.9); Red Blood Count 4.48 M/mm3 (4.2-5.4); White Blood Count 7.3 K/mm3 (4.4-11.0)
[2020-08-12 22:41] LABS: ALB/GLOB Ratio 0.8 RATIO (0.9-2.4); AST(SGOT) 12 U/L (15-37); Alanine Aminotransfer ALT/SGPT 24 U/L (13-56); Albumin, Serum 3.3 g/dL (3.2-5.0); Alkaline Phosphatase 86 U/L (45-117); Anion Gap 3 (5-15); BUN 16 mg/dL (7-18); BUN/Creat Ratio 18.5 RATIO (10-20); Calcium,Total 8.5 mg/dL (8.5-10.1); Chloride 108 mmol/L (98-107); Cholesterol 195 mg/dL (200); Creatinine, Serum 0.86 mg/dL (0.55-1.02); EST Glomerular Filtration Rate 74 mL/min (>60); Est Glom Filt Rate - Afr Amer 90 mL/min (>60); Globulin 4.4 g/dL (2.2-4.2); Glucose 73 mg/dL (74-106); High Density Lipoprotein 29 mg/dL; Potassium 4.7 mmol/L (3.5-5.1); Protein, Total 7.7 g/dL (6.4-8.2); Sodium Level 139 mmol/L (136-145); Thyroid Stim Hormone (TSH) 1.36 uIU/mL (0.358-3.74); Triglycerides 342 mg/dL; Very Low Density Lipoprotein 68 mg/dL (5-40)
== END ==
PROVIDERS: PCP Nurse Practitioner; Referring Provider Nurse Practitioner; Visit Provider Nurse Practitioner
DX: E03.9 Hypothyroidism, unspecified (principal); E78.2 Mixed hyperlipidemia
CPT/HCPCS: 80053; 80061; 84443; 85025

== ENCOUNTER → 2021-08-04 21:34 | Outpatient (CLI) | payer OTHER, SELFPAY | PROVIDERS: PCP Nurse Practitioner; Visit Provider Nurse Practitioner | DX: E03.9 Hypothyroidism, unspecified (principal); E78.2 Mixed hyperlipidemia; F41.9 Anxiety disorder, unspecified; D50.9 Iron deficiency anemia, unspecified ==

== ENCOUNTER → 2022-08-18 | Outpatient (CLI) | payer OTHER, SELFPAY ==
[2022-08-18 21:48] LABS: Absolute Lymphocyte Count 2.29 X10^3/uL (0.83-4.51); Absolute Neutrophil Count 4.5 X10^3/uL (2.0-7.7); Basophil# 0.05 X10^3/uL; Basophil% 0.7 % (0-1); Eosinophil# 0.26 X10^3/uL; Eosinophils% 3.4 % (0-5); Hematocrit 37.3 % (37-47); Hemoglobin 11.4 g/dL (12.0-15.0); Lymphocyte # 2.29 X10^3/ul (0.83-4.51); Lymphocyte % 30.1 % (19-41); Mean Corp Hgb Conc 30.6 g/dL (32-36); Mean Corpuscular Hgb 26.5 pg (27.0-32.0); Mean Corpuscular Volume 86.7 fL (81-99); Mean Platelet Vol. 11.3 fl (6.2-12.0); Monocyte# 0.52 X10^3/uL; Monocyte% 6.8 % (0-10); NRBC Flagged by Analyzer 0 % (0-5); Neutrophil # 4.45 X10^3/uL (2.7-7.7); Neutrophil % 58.6 % (47-70); Platelet Count 391 K/mm3 (150-450); RBC Distribution Width CV 14.6 % (11.6-14.6); RBC Distribution Width SD 46.3 fl (35.1-43.9); White Blood Count 7.6 K/mm3 (4.4-11.0)
[2022-08-18 22:11] LABS: ALB/GLOB Ratio 0.7 RATIO (0.9-2.4); AST(SGOT) 15 U/L (15-37); Alanine Aminotransfer ALT/SGPT 34 U/L (13-56); Alkaline Phosphatase 66 U/L (45-117); Anion Gap 5 (5-15); BUN 17 mg/dL (7-18); BUN/Creat Ratio 19.7 RATIO (10-20); Calcium,Total 8.3 mg/dL (8.5-10.1); Chloride 107 mmol/L (98-107); Cholesterol 176 mg/dL (200); Creatinine, Serum 0.86 mg/dL (0.55-1.02); EST Glomerular Filtration Rate 74 mL/min (>60); Est Glom Filt Rate - Afr Amer 89 mL/min (>60); Globulin 4.2 g/dL (2.2-4.2); Glucose 96 mg/dL (74-106); High Density Lipoprotein 31 mg/dL; Potassium 4.6 mmol/L (3.5-5.1); Protein, Total 7.2 g/dL (6.4-8.2); Sodium Level 138 mmol/L (136-145); Thyroid Stim Hormone (TSH) 1.31 uIU/mL (0.358-3.74); Triglycerides 368 mg/dL; Very Low Density Lipoprotein 74 mg/dL (5-40)
== END | disposition home or self-care (01) ==
PROVIDERS: PCP Nurse Practitioner; Visit Provider Nurse Practitioner
DX: E03.9 Hypothyroidism, unspecified (principal); F41.9 Anxiety disorder, unspecified; E78.2 Mixed hyperlipidemia
CPT/HCPCS: 80053; 80061; 84443; 85025

== ENCOUNTER → 2023-08-16 | Outpatient (CLI) | payer BC, SELFPAY ==
[2023-08-16 22:36] LABS: Absolute Lymphocyte Count 2.29 X10^3/uL (0.83-4.51); Basophil# 0.04 X10^3/uL; Basophil% 0.6 % (0-1); Eosinophil# 0.34 X10^3/uL; Eosinophils% 4.8 % (0-5); Hematocrit 38.1 % (37-47); Hemoglobin 12.1 g/dL (12.0-15.0); Lymphocyte # 2.29 X10^3/ul (0.83-4.51); Lymphocyte % 32.4 % (19-41); Mean Corp Hgb Conc 31.8 g/dL (32-36); Mean Corpuscular Hgb 27.4 pg (27.0-32.0); Mean Corpuscular Volume 86.4 fL (81-99); Mean Platelet Vol. 12.7 fl (6.2-12.0); Monocyte# 0.41 X10^3/uL; Monocyte% 5.8 % (0-10); NRBC Flagged by Analyzer 0 % (0-5); Neutrophil # 3.97 X10^3/uL (2.7-7.7); Neutrophil % 56.1 % (47-70); Platelet Count 403 K/mm3 (150-450); RBC Distribution Width CV 13.7 % (11.6-14.6); RBC Distribution Width SD 42.3 fl (35.1-43.9); Red Blood Count 4.41 M/mm3 (4.2-5.4); White Blood Count 7.1 K/mm3 (4.4-11.0)
--- OUTSIDE RECORDS SUMMARY | 2023-08-16 22:36 | XMS RPT_ITS | CCD ---
Author Name Unknown Address [address] [place] [address] Organization [facility] Results Test Name Value Interpretation Reference Range Facil ity Progress note 07-27-2021 Note Date & Type Note Facility 07-27-2021 Note HNO ID: [id number] Author: Todd Nelson MD Service: ? Author Type: Physician Type: Progress Notes Filed: 07/27/2021 9:00 AM Note Text: Chief Complaint: Left knee pain Consuting Physician: Self History: Kellee is a 51 year old female who presents with a 6 month history of left knee pain. She denies any traumatic history but more of an insidious onset of pain. The pain is located along the medial region of the knee. The pain is non-radiating and intermittent in nature. The pain is worse in the morning and after activities such as prolonged ambulation and standing. The pain is typically dull but can be sharp at times. she reports occasional night pain. Stiffness is noted especially in the am and with prolonged sitting activities. Clicking and popping are noted but no locking or catching. she has tried Ibuprofen and Tylenol with minimal success. No pain in the hip, back or groin region. No numbness and tingling down the extremity. No fevers, chills, night sweats or other constitutional symptoms. Occasional swelling is experienced. There are no symptoms of infection or deep venous thrombosis. She quantitates the pain as 4/10. She reports that her ADL?s have been affected adversely secondary to her knee pain. Review Of Systems: GENERAL: Well developed, well nourished. No acute distress PAIN: Negative for pain, history of chronic pain or current treatment for chronic pain conditions CARDIOVASCULAR: Negative for chest pain, leg swelling and palpations. MSK: Negative for joint pain, swelling, back pain, muscle pain. SKIN: Negative for lesions, rash, itching, metal sensitivity NEURO: Negative for seizure, trauma, numbness/tingling of extremities. ENDOCRINE: Negative for Diabetes Type 1 and Type 2 HEMATOLOGY: Negative for excessive bleeding, clots, bleeding disorders. Physical Examination: Kellee is alert and oriented and in no acute distress. She exhibits an antalgic gait. She has evidence of (varus/ valgus) malalignment of her left knee(s). Skin is intact bilaterally. The patient lacks 0 degrees of full extension of the left knee(s) and lacks 5 degrees of flexion as well. She has evidence of a Small effusion. She has evidence of patellofemoral crepitation with ROM. There is some pain with palpation along the medial and lateral facets of the patella. She has pain along the medial and lateral joint lines. A negative Bob?s is noted. Negative anterior and posterior drawers are seen. She has good stability with varus and valgus stress at 0 and 30 degrees. No increase in ER is seen at 30 or 90 degrees. Full ROM of both hips and ankles are noted. She has 5/5 motor strength with downgoing Babinski?s and symmetric reflexes. Good pulses and cap refill are seen. Gross sensation intact. X-ray Evaluation: Standing 45 degree weight bearing, merchant and lateral radiographs of the left knee (s) were ordered, taken and reviewed today. The radiographs show Varus malalignment and moderate joint space narrowing along the patellofemoral joint lines with osteophytic spurring, and sclerosis. The patellae are located in the trochlea but also show signs of sclerosis, and joint space narrowing. No signs of fracture, avulsion or dislocation. No overt signs of bony tumor. Assessment: Primary osteoarthritis of left knee (primary encounter diagnosis) Plan: The patient understands the diagnosis, treatment options and indications for both operative and non-operative, their associated risks, complications, benefits, outcomes, rehabilitation and failures. The patient was advised and educated on standard non-operative knee care including the benefits of weight maintenance, activity modifications and a home flexibility/strengthening or walking program. I have discussed the risks, possible reactions, allergies and side effects, as well as the potential benefits of hyaluronic acid injections (vicosupplementation) - left knee with the patient. The patient would like to proceed with hyaluronic acid injections and we will seek authorization and schedule. I would anticipate the insurance company to approve the treatment since the following criteria has been met and we have progressed through the treatment steps which include: - The patient has documented arthritis clinically and radiographically and has failed other nonoperative forms of treatment. - There is knee pain associated with radiographic evidence of osetophytes and joint space narrowing due to loss of articular cartilage. - The patient experiences morning stiffness which tends to improve with motion and also experiences crepitation on range of motion of the knee - The pain causes daily functional activities to be more difficult (e.g. Ambulation, prolonged standing, etc.). - recommended weight maintenance has not been effective in significantly decreasing pain. - Arthritis medications such as NSAID's and Tylenol when appropriate, etienne (more content not included)... [facility] Summary Purpose Family History No Family History Records FoundNo Family History Records Found Advance Directives No Advanced Directives Records FoundNo Advanced Directives Records Found Additional Source Comments INFORMATION SOURCE (unrecogn ized section and content) DATE CREATED AUTHOR AUTHOR'S KENIZ ATION 08/13/2021 [facility] FOR RECORDS PERTAINING TO PATIENTS WHO ARE OR HAVE BEEN ENROLLED IN A CHEMICAL DEPENDENCY/SUBSTANCEABUSE PROGRAM, SOME INFORMATION MAY BE OMITTED. This clinical summary was aggregated from multiple sources. Caution should be exercised in using it in the provision of clinical care. This summary normalizes information from multiple sources, and as a consequence, information in this document may materially change the coding, format and clinical context of patient data. In addition, data may be omitted in some cases. CLINICAL DECISIONS SHOULD BE BASED ON THE PRIMARY CLINICAL RECORDS. [facility] [employer] provides no warranty or guarantee of the accuracy or completeness of information in this document.
[2023-08-16 23:07] LABS: ALB/GLOB Ratio 0.8 RATIO (0.9-2.4); AST(SGOT) 22 U/L (15-37); Alanine Aminotransfer ALT/SGPT 26 U/L (13-56); Albumin, Serum 3.2 g/dL (3.2-5.0); Alkaline Phosphatase 68 U/L (45-117); Anion Gap 5 (5-15); BUN 15 mg/dL (7-18); BUN/Creat Ratio 12.9 RATIO (10-20); Calcium,Total 8.3 mg/dL (8.5-10.1); Chloride 107 mmol/L (98-107); Cholesterol 183 mg/dL (200); Creatinine, Serum 1.16 mg/dL (0.55-1.02); EST Glomerular Filtration Rate 52 mL/min (>60); Est Glom Filt Rate - Afr Amer 63 mL/min (>60); Globulin 4.2 g/dL (2.2-4.2); Glucose 101 mg/dL (74-106); High Density Lipoprotein 28 mg/dL; Potassium 4.2 mmol/L (3.5-5.1); Protein, Total 7.4 g/dL (6.4-8.2); Sodium Level 141 mmol/L (136-145); Thyroid Stim Hormone (TSH) 0.79 uIU/mL (0.358-3.74); Triglycerides 316 mg/dL; Very Low Density Lipoprotein 63 mg/dL (5-40)
== END | disposition home or self-care (01) ==
PROVIDERS: PCP Nurse Practitioner; Visit Provider Nurse Practitioner
DX: E03.9 Hypothyroidism, unspecified (principal); K21.9 Gastro-esophageal reflux disease without esophagitis; D64.9 Anemia, unspecified; E78.2 Mixed hyperlipidemia
CPT/HCPCS: 80053; 80061; 84443; 85025

== ENCOUNTER → 2023-08-25 | Outpatient (CLI) | payer BC, SELFPAY ==
--- NOTE | 2023-08-25 07:44 | BI_ITS ---
MAMMOGRAPHY - BILATERAL SCREENING REASON FOR EXAM: Female, 53 years old. Routine annual screening examination. PERTINENT HISTORY: Grandmother with breast cancer. TECHNIQUE: Digital bilateral breast kg (3D mammographic acquisition) in the CC and MLO projections. 2-D mediolateral oblique (MLO) and craniocaudad (CC) views of both breasts were obtained. CAD: Full Field Digital Mammography with Computer Added Detection was performed. COMPARISON: Comparison is made with prior outside examination dated January 26, 2010. FINDINGS: Breast Composition: There are scattered areas of fibroglandular density. There are no dominant masses or suspicious calcifications. Stable small benign-appearing bilateral axillary lymph nodes. No other significant abnormalities are identified. There has been no significant change since the prior study. BI/SCRN MAMM (CAD)W/KG BILAT IMPRESSION: Stable bilateral screening mammogram. Yearly follow-up mammogram recommended. (A) ASSESSMENT CATEGORY: BIRADS Category 2: Benign. A letter regarding these results will be sent to the patient by the facility within 30 days. Approximately 10% of breast cancers are not detected by mammography. A normal mammogram should not delay biopsy of a clinically suspicious abnormality. [id number] Electronically Signed: Jake Hoffman MD at 15:01 EST ,
--- OUTSIDE RECORDS SUMMARY | 2023-08-25 07:46 | XMS RPT_ITS | CCD ---
Author Name Unknown Address [address] [place] [address] Organization [facility] Results Test Name Value Interpretation Reference Range Facil ity Progress note 07-27-2021 Note Date & Type Note Facility 07-27-2021 Note HNO ID: [id number] Author: Todd Nelson MD Service: ? Author [...] when appropriate, etienne (more content not included)... [facility] Summary Purpose Family History No Family History Records FoundNo Family History Records Found Advance Directives No Advanced Directives Records FoundNo Advanced Directives Records Found Additional Source Comments INFORMATION SOURCE (unrecogn ized section and content) DATE CREATED AUTHOR AUTHOR'S KENIZ ATION 08/13/2021 [facility] FOR RECORDS PERTAINING TO PATIENTS WHO ARE [...] BE BASED ON THE PRIMARY CLINICAL RECORDS. [facility] [employer] provides no warranty or guarantee of the accuracy or completeness of information in this document.
== END | disposition home or self-care (01) ==
LOC: OPBI 07:43
PROVIDERS: PCP Nurse Practitioner; Referring Provider Nurse Practitioner; Visit Provider Nurse Practitioner
DX: Z12.31 Encounter for screening mammogram for malignant neoplasm of breast (principal); Z80.3 Family history of malignant neoplasm of breast
CPT/HCPCS: 77063; 77067

== ENCOUNTER → 2023-11-14 | Outpatient (CLI) | payer BC, SELFPAY ==
--- NOTE | 2023-11-14 06:49 | CT_ITS ---
STUDY: CT MAXILLOFACIAL SINUSES REASON FOR EXAM: Female, 53 years old. SINUSITIS RADIATION DOSAGE (If Supplied By Facility): CTDIvol = ( 33.06 ) mGy, DLP = ( 767.73 ) mGycm TECHNIQUE: The patient was scanned in a multi detector CT scanner. High resolution axial imaging was performed without the administration of intravenous contrast material. Sagittal and coronal images were reconstructed. Individualized dose optimization techniques were used for this CT. COMPARISON: None. FINDINGS: FRONTAL SINUSES: Normal aeration, without mucosal inflammatory disease. ETHMOIDAL SINUSES: Partial opacification of the ethmoid sinuses worse on the left side. MAXILLARY SINUSES: Opacification of the right maxillary sinus. SPHENOIDAL SINUSES: Mucosal thickening of the anterior aspects of the sphenoid sinuses bilaterally. Compromise of the right ostiomeatal complex due to mucosal hypertrophy. There are inkkie bullosa of the bilateral turbinates. There is hypertrophy of the left inferior nasal turbinate. There is a left sided nasal septal deviation, but without a nasal septal spur. There is patency of the bilateral nasal airways. The visualized osseous structures are normal. The visualized bilateral orbital contents are normal. CT/Sinus/Facial Bone IMPRESSION: Opacification of the right maxillary sinus with compromise of the right ostiomeatal complex due to mucosal hypertrophy. Partial opacification of the ethmoid sinuses worse on the left side. Mucosal thickening along the anterior aspect of the sphenoid sinuses bilaterally. Electronically Signed: Jake Hoffman MD at 10:22 EDT ,
== END | disposition home or self-care (01) ==
LOC: CT 06:48
PROVIDERS: PCP Nurse Practitioner; Referring Provider Otolaryngology; Visit Provider Otolaryngology
DX: J32.8 Other chronic sinusitis (principal)
CPT/HCPCS: 70486

== ENCOUNTER 2024-01-08 08:52 | Day surgery (SDC) | payer BC, SELFPAY ==
--- NOTE | 2024-01-04 13:29 | EKG12_ITS ---
Test Reason : PRE OP Blood Pressure : / mmHG Vent. Rate : 075 BPM Atrial Rate : 075 BPM P-R Int : 114 ms QRS Dur : 082 ms QT Int : 406 ms P-R-T Axes : 011 012 044 degrees QTc Int : 453 ms Normal sinus rhythm Normal ECG Confirmed by Son Yoon ([id number]), editorial assistant GLENIS SHANKAR ([id number]) on 01/08/2024 10:06:00 AM Referred By: Geoff Kirkland Confirmed By:Son Yoon
[2024-01-04 14:34] LABS: Hematocrit 39.7 % (37-47); Hemoglobin 12.4 g/dL (12.0-15.0); Mean Corp Hgb Conc 31.2 g/dL (32-36); Mean Corpuscular Hgb 26.6 pg (27.0-32.0); Mean Corpuscular Volume 85.2 fL (81-99); Mean Platelet Vol. 9.8 fl (6.2-12.0); Platelet Count 459 K/mm3 (150-450); RBC Distribution Width CV 14.6 % (11.6-14.6); RBC Distribution Width SD 44.3 fl (35.1-43.9); Red Blood Count 4.66 M/mm3 (4.2-5.4); White Blood Count 7.8 K/mm3 (4.4-11.0)
[2024-01-04 14:58] LABS: Anion Gap 2 (5-15); BUN 15 mg/dL (7-18); BUN/Creat Ratio 19.4 RATIO (10-20); Calcium,Total 8.7 mg/dL (8.5-10.1); Chloride 107 mmol/L (98-107); Creatinine, Serum 0.77 mg/dL (0.55-1.02); EST Glomerular Filtration Rate 83 mL/min (>60); Est Glom Filt Rate - Afr Amer 101 mL/min (>60); Glucose 66 mg/dL (74-106); Potassium 3.8 mmol/L (3.5-5.1); Sodium Level 137 mmol/L (136-145)
[2024-01-04 15:16] LABS: Thyroid Stim Hormone (TSH) 1.55 uIU/mL (0.358-3.74)
[2024-01-08] VITALS (9 sets, daily range): BP systolic 120–148; BP diastolic 71–82; PULSE 64–77; RESP 16–18; TEMP 35.9–36.2; O2SAT 91–96; BMI 48.0
--- NOTE | 2024-01-08 | ETH_PTH ---
PATIENT: ASH GRIGSBY [place] [facility] [id number] AGE/SX: 53/F ROOM: RE01/08/[address]: Dr. Geoff Kirkland MD : 1970 BED: DIS: 01/08/2024 SPEC #: [id number] RECD: 01/08/24 13:50 STATUS: CELI RENETTA #: [id number] LIN: 01/08/24 00:[address]: Geoff Kirkland DEPT: SURGICAL PATHOLOGY RECD BY: Oneil Connor ENTERED: 01/08/24 13:51 SP TYPE: ETH TISS OTHR DR: Candy Gallo, DRAIN CLEANER-C Tissues: A - Ethmoid sinus, NOS B - Ethmoid sinus, NOS Procedures: Surgery Specimen Level IV HEADER OPERATION: Functional endoscopic sinus surgery, navigation PRE-OP DIAGNOSIS: Other chronic sinusitis, hypertrophy of nasal turbinates, nasal congestion, deviated nasal septum TISSUE SUBMITTED: A- Left sinus content, B- Right sinus content MICROSCOPIC DIAGNOSIS A. Left sinus content: Chronic sinusitis. Bone with no pathologic change. B. Right sinus content: Chronic sinusitis. Bone with no pathologic change. / 01/11/2024 MICROSCOPIC DESCRIPTION Slides are reviewed. GROSS DESCRIPTION A. Received in fixative is one container labeled with the patient's name and designated Left sinus contents. The specimen consists of multiple irregular and indurated fragments of pink-bartlett gritty tissue measuring in aggregate 2.0 x 1.0 x 0.1cm. The specimen is totally submitted in one cassette after decalcification. B. Received in fixative is one container labeled with the patient's name and designated Right sinus contents. The specimen consists of multiple irregular and indurated fragments of pink-bartlett gritty tissue measuring in aggregate 2.5 x 1.0 x 0.1cm. The specimen is totally submitted in one cassette after decalcification. / 01/08/2024 TC:3 CPT:09620b8,27331 x2
[2024-01-08] MEDS: Lactated Ringers 1,000 ML 15 ML IV (09:23)
[2024-01-08] MEDS: Oxymetazoline 0.05% 1 SPRAY SPRAY.BTL 3 SPRAY NASAL (09:24)
[2024-01-08] MEDS: Oxymetazoline 0.05% 1 SPRAY SPRAY.BTL 15 SPRAY (09:54)
[2024-01-08] MEDS: Lidocaine 1% /Epi 1:100 (50ml) 50 ML VIAL (09:54)
--- NOTE | 2024-01-08 10:07 | DS.PCM_ITS ---
Providers Primary Care Physician: Candy Gallo, CAREER DEVELOPMENT CONSULTANT-C Reason For Visit: Functional Endoscopoic Sinus Surgery, Navigation Medications at Discharge Home Medications lansoprazole 30 mg capsule,delayed release 30 mg PO BID 07/26/18 hydroxyzine HCl 10 mg tablet 10 mg PO TID-QID PRN anxiety #45 tabs 08/18/22 rimegepant 75 mg disintegrating tablet (Nurtec ODT) 75 mg PO ONCE PRN migraine headache #10 tabs 04/06/23 fluoxetine 20 mg capsule 40 mg (2 x 20 mg) PO DAILY #180 caps 05/31/23 levothyroxine 75 mcg tablet 75 mcg PO DAILY #90 tabs 08/17/23 albuterol sulfate 90 mcg/actuation aerosol inhaler (ProAir HFA) 2 puff inhalation Q6H PRN shortness of breath or wheezing 01/01/24 rosuvastatin 20 mg tablet 20 mg PO QHS 01/01/24 Weight / BMI Weight Weight: 135 kg Body Mass Index (BMI) 48.0 ABG / Lab / Microbiology Data 01/04/24 13:45 01/04/24 13:45 D/C Instructions Discharge Diet: No restrictions Discharge Activity: Return to Normal Activity Additional Activity Instructions: No nose blowing Additional Instructions: Start saline irrigation tomorrow. Irrigate 4x/day Please Follow Up With: Geoff Kirkland MD When: next week Meaningful Use Info Meaningful Use Meaningful Use Diagnoses (Choose all that apply): None applicable Ischemic Stroke Statin Dosing Therapy Reference: STATIN DOSE THERAPY REFERENCE: * Patients > 75 years receive moderate or high dose statin therapy. * Patients 75 years or YOUNGER should receive HIGH intensity statin dose unless contraindicated. You will be required to document reason for non-treatment if statin daily dose does not meet guidelines. HIGH DOSE STATIN THERAPY DAILY Atorvastatin > than or = to 40 mg Rosuvastatin > than or = to 20 mg Amlodipine + Atorvastatin > than or = to 2.5/40 mg Ezetimibe + Simvastatin 10/80 mg Simvastatin 80mg Discharge Plan Admission Attending Provider: Geoff Kirkland Primary Care Provider: Candy Gallo NP Instructions Print Language: Azeri Discharge Orders/Prescriptions Prescriptions: No Action lansoprazole 30 mg capsule,delayed release(DR/EC) 30 mg PO BID hydroxyzine HCl 10 mg tablet 10 mg PO TID-QID PRN (Reason: anxiety) Qty: 45 12RF Nurtec ODT 75 mg tablet,disintegrating 75 mg PO ONCE PRN (Reason: migraine headache) Qty: 10 12RF Rx Instructions: as a single dose fluoxetine 20 mg capsule 40 mg PO DAILY Qty: 180 3RF levothyroxine 75 mcg tablet 75 mcg PO DAILY Qty: 90 3RF albuterol sulfate [ProAir HFA] 90 mcg/actuation HFA aerosol inhaler 2 puff INHALATION Q6H PRN (Reason: shortness of breath or wheezing) rosuvastatin 20 mg tablet 20 mg PO QHS Other Ambulatory Orders: 12 Lead EKG (Routine) Timeframe: 20240104 Location: None Selected Ordered By: Dr. Geoff Kirkland Referrals / Follow Up: Candy Gallo CAREER DEVELOPMENT CONSULTANT, CAREER DEVELOPMENT CONSULTANT-C [Primary Care Provider] - Disposition Disposition (needs filled in before D/C Order can be placed): Home, Self Care
--- NOTE | 2024-01-08 10:10 | OP.PCM_ITS ---
Report of Operation Date of Procedure: 01/08/24 Pre-Operative Diagnosis: chronic sinusitis Post-Operative Diagnosis: same Surgery/Procedure Performed:: bilateral total ethmoidectomy bilateral maxillary antrostomy Surgeon: Geoff Kirkland Type of Anesthesia: General Estimated Blood Loss (mL): minimal Description of Procedure: The patient was taken to the operating room on 01/08/2024. The patient was placed in the supine position on the operating table. The patient was given sufficient general endotracheal anesthesia. The head of bed was elevated 30 degrees. The navigation system was placed and verified per protocol and found to be accurate. 0 and 30 degrees rigid nasal endoscopes were used throughout the entire case. The middle turbinate uncinate process and polyps were injected with 1% lidocaine with epinephrine bilaterally. The right middle turbinate was medialized with a Annabella elevator. A ball-tipped sinus seeker was placed into the patient's maxillary sinus. The antrostomy was created with a backbiter. Thick secretions were suctioned from the maxillary sinus with a curved suction. The uncinate process was taken down using a microdebrider. Next, the ethmoid bulla was opened with a small curette. Anterior and posterior ethmoidectomy were then carried out using curette, sinus shaver and 45 degree Blakesley Missael forceps. Ethmoid cells were verified for relation to the skull base and orbit prior to being entered with the navigation system. I then placed Afrin pledgets into the sinonasal cavity. Next attention was turned to the left side. The middle turbinate was medialized with a Annabella elevator. A large polyp was removed from the middle meatus using a sinus shaver. The uncinate process was taken down using a sinus shaver. The maxillary antrostomy was created with a back biter. The ethmoid bulla was opened with a small curette. Anterior and posterior ethmoidectomy were then carried out using a sinus shaver curette and Blakesley Missael forceps. Ethmoid cells were verified for relation to the skull base and orbit prior to being entered with the navigation system. Hemostasis was then achieved using Afrin pledgets. The pledgets were then removed bilaterally and Ravindra powder was applied bilaterally for absolute hemostasis. The procedure was then terminated. The patient was then awoken and brought to the recovery room in stable condition blood loss less than 10 cc, replacement none. Sponge, needle, instrument count were correct at the end of the procedure.
== END 2024-01-08 13:20 | disposition home or self-care (01) ==
LOC: SDC 08:52 → AC 08:54
PROVIDERS: Anesthesiology; PCP Nurse Practitioner; Referring Provider Otolaryngology; Visit Provider Otolaryngology
PROC: (CPT 31255; principal; 2024-01-08 10:00)
DX: J32.9 Chronic sinusitis, unspecified (principal); J34.2 Deviated nasal septum; J34.3 Hypertrophy of nasal turbinates; F41.9 Anxiety disorder, unspecified; K21.9 Gastro-esophageal reflux disease without esophagitis; E03.9 Hypothyroidism, unspecified; E78.00 Pure hypercholesterolemia, unspecified; Z79.899 Other long term (current) drug therapy; Z79.51 Long term (current) use of inhaled steroids
CPT/HCPCS: 31255; 31256; 00160; 36415; 80048; 84443; 85027; 88305; 93005; J7120; J2405

== ENCOUNTER → 2025-07-30 | Outpatient (CLI) | payer BC, SELFPAY ==
--- OUTSIDE RECORDS SUMMARY | 2025-07-30 21:30 | XMS RPT_ITS | CCD ---
Author Organization [facility] Team Providers Care Tannery Worker Name Role Phone Pramod Mcdonald Attending Unavailable Sabino PIER WORKER, Candy Referring Unavailable Sabino PIER WORKER, Candy Primary Care Unavailable Son Yoon Attending Unavailable Geoff Kirkland Referring Unavailable Sabino PIER WORKER, Candy Primary Care Unavailable Geoff Kirkland Attending Unavailable Geoff Kirkland Referring Unavailable Sabino PIER WORKER, Candy Primary Care Unavailable Geoff Kirkland Attending Unavailable Geoff Kirkland Referring Unavailable Sabino PIER WORKER, Candy Primary Care Unavailable Sabino PIER WORKER, Candy Attending Unavailable Sabino PIER WORKER, Candy Referring Unavailable Sabino PIER WORKER, Candy Primary Care Unavailable Sabino PIER WORKER, Candy Attending Unavailable Sabino PIER WORKER, Candy Primary Care Unavailable Allergies Allergy Classification Reported Allergen(s) Allergy Type Date of Onset Reaction(s) Facility (4 sources) Aspirin Drug Allergy 9 facial swelling [facility] (4 sources) Cortisone Drug Allergy 8 Itching [facility] (3 sources) POLYETHYLENE GLYCOL 3350 Drug Allergy 3 Hives [facility] (1 source) Aspirin Drug Allergy 4 [facility] (1 source) Cortisone Drug Allergy 4 [facility] (1 source) Polyethylene Glycols Drug Allergy 4 [facility] Medications Current Medications Medication Drug Class(es) Dates Sig (Normalized) Sig (Original) clarithromycin 500 mg oral tablet (1 source) Macrolide Antimicrobial Start: 09-28-2023 take 500 mg by mouth twice daily Clarithromycin Active 500 MG PO TWICE A DAY September 28, 2023 1:00am fluconazole 150 mg oral tablet (14 sources) Azole Antifungal Start: 05-31-2023 End: 08-17-2023 Fluconazole Active 150 MG PO Every 3 Days 2 0 August 17, 2023 5:42pm may repeat second dose 72 hrs after first dose if symptoms persist Start: 07-20-2021 End: 08-04-2021 Fluconazole Discontinued 150 MG PO Every 3 Days 2 0 July 20, 2021 1:28pm August 04, 2021 7:43pm may repeat second dose 72 hrs after first dose if symptoms persist Start: 08-07-2018 End: 08-08-2018 Fluconazole Discontinued 150 MG PO Every 3 Days 2 0 August 07, 2018 1:00am August 08, 2018 1:08am may repeat second dose 72 hrs after first dose if symptoms persist hydrOXYzine hydrochloride 10 mg oral tablet (8 sources) Antihistamine Start: 08-04-2021 End: 08-18-2022 take 10 mg by mouth three to four times daily Hydroxyzine Hcl Active 10 MG PO 3 to 4 times per day August 18, 2022 5:23pm lansoprazole 30 mg delayed release oral capsule (4 sources) Proton Pump Inhibitor Start: 07-26-2018 take 30 mg by mouth twice daily Lansoprazole Active 30 MG PO TWICE A DAY July 26, 2018 1:00am rimegepant 75 mg disintegrating oral tablet (3 sources) Start: 04-06-2023 take 1 tablet by mouth once Rimegepant (Nurtec Odt) 75 mg tablet,disintegrat ing Active 75 MG PO ONCE April 06, 2023 12:00am as a single dose rosuvastatin calcium 20 mg oral tablet (3 sources) HMG-CoA Reductase Inhibitor Start: 08-17-2023 take 20 mg by mouth once daily Rosuvastatin Active 20 MG PO DAILY August 17, 2023 1:00am Completed/Discontinued Medications Medication Drug Class(es) Dates Sig (Normalized) Sig (Original) [id number] 200 actuat albuterol 0.09 mg/actuat metered dose inhaler (20 sources) beta2-Adrenergic Agonist Start: 07-11-2018 End: 05-31-2023 take 1 puff(s) by inhalation every six hours Albuterol Sulfate (Proair Hfa) 90 mcg/actuation HFA aerosol inhaler Discontinued 2 PUFF INHALATION EVERY 6 HOURS 8.5 August 04, 2021 7:54pm May 31, 2023 6:17pm Start: 07-25-2017 End: 07-11-2018 take 1 puff(s) by inhalation every six hours Albuterol Sulfate (Proair Hfa) 90 mcg/actuation HFA aerosol inhaler Discontinued 2 PUFF INHALATION EVERY 6 HOURS July 25, 2017 1:00am July 11, 2018 6:36pm amoxicillin 875 mg / clavulanate 125 mg oral tablet (20 sources) Penicillin-class Antibacterial Start: 05-31-2023 End: 09-28-2023 take 1 tablet by mouth twice daily Amoxicillin-Pot Clavulanate Discontinued 1 TABLET PO TWICE A DAY August 16, 2023 4:36pm September 28, 2023 6:07pm Start: 01-27-2023 End: 02-06-2023 take 1 tablet by mouth every twelve hours Amoxicillin-Pot Clavulanate Discontinued 1 TABLET PO Q12H 09 06January 27, 2023 12:00am February 06, 2023 12:04am Start: 07-13-2021 End: 08-04-2021 take 1 tablet by mouth twice daily Amoxicillin-Pot Clavulanate Discontinued 1 TABLET PO TWICE A DAY July 13, 2021 1:00am August 04, 2021 7:43pm Start: 08-22-2019 End: 08-12-2020 take 1 tablet by mouth twice daily Amoxicillin-Pot Clavulanate Discontinued 1 TABLET PO TWICE A DAY November 05, 2019 12:00am August 12, 2020 4:42pm Start: 08-07-2018 End: 08-22-2019 take 1 tablet by mouth every twelve hours Amoxicillin-Pot Clavulanate Discontinued 1 TABLET PO Q12H September 11, 2018 2:01pm August 22, 2019 6:35pm cefdinir 300 mg oral capsule (7 sources) Cephalosporin Antibacterial Start: 04-06-2023 End: 05-31-2023 take 300 mg by mouth twice daily Cefdinir Discontinued 300 MG PO TWICE A DAY April 06, 2023 3:49pm May 31, 2023 6:09pm Start: 08-08-2022 End: 08-18-2022 take 300 mg by mouth twice daily Cefdinir Discontinued 300 MG PO TWICE A DAY August 08, 2022 1:00am August 18, 2022 5:19pm citalopram 10 mg oral tablet (4 sources) Serotonin Reuptake Inhibitor Start: 07-25-2017 End: 07-11-2018 take 10 mg by mouth once daily Citalopram Discontinued 10 MG PO daily July 25, 2017 1:00am July 11, 2018 6:36pm cyclobenzaprine hydrochloride 5 mg oral tablet (4 sources) Muscle Relaxant Start: 11-20-2018 End: 08-22-2019 take 5 mg by mouth three times daily Cyclobenzaprine Discontinued 5 MG PO THREE TIMES A DAY 60 November 20, 2018 12:00am August 22, 2019 6:36pm FLUoxetine 20 mg oral capsule (20 sources) Serotonin Reuptake Inhibitor Start: 07-26-2018 End: 05-31-2023 take 40 mg by mouth once daily Fluoxetine Discontinued 40 MG PO DAILY 180 April 06, 2023 3:44pm May 31, 2023 6:17pm Start: 07-11-2018 End: 07-26-2018 take 20 mg by mouth once daily Fluoxetine Discontinued 20 MG PO DAILY July 11, 2018 1:00am July 26, 2018 10:47am levothyroxine sodium 0.075 mg oral tablet (20 sources) l-Thyroxine Start: 07-13-2018 End: 08-17-2023 take 75 ug by mouth once daily Levothyroxine Discontinued 75 MCG PO DAILY August 19, 2020 8:49pm August 04, 2021 7:55pm methylPREDNISolone 4 mg oral tablet (3 sources) Corticosteroid Start: 01-27-2023 End: 02-02-2023 take 1 tablet by mouth once Methylprednisolone (Medrol (Amilcar)) 4 mg tablets,dose pack Discontinued 4 MG PO per package directions 08 02January 27, 2023 12:00am February 02, 2023 12:04am predniSONE 20 mg oral tablet (15 sources) Start: 04-06-2023 End: 05-31-2023 take 40 mg by mouth once daily Prednisone Discontinued 40 MG PO DAILY April 06, 2023 3:49pm May 31, 2023 6:09pm Start: 11-20-2018 End: 11-24-2018 Prednisone Discontinued 20 M G PO TWICE A DAY 30 4 November 20, 2018 12:00am November 24, 2018 12:11am 2 po bid 4D,1 po bid for 4 D, 1 po qd for 4D 1/2 po qd for2 D Start: 09-29-2018 End: 10-07-2018 Prednisone Discontinued 20 M G PO TWICE A DAY 30 4 September 29, 2018 1:00am October 07, 2018 1:09am 2 po bid 4D,1 po bid for 4 D, 1 po qd for 4D 1/2 po qd for2 D Start: 09-10-2018 End: 08-22-2019 take 40 mg by mouth once daily Prednisone Discontinued 40 MG PO DAILY September 10, 2018 1:00am August 22, 2019 6:36pm topiramate 50 mg oral tablet (3 sources) Start: 04-06-2023 End: 05-31-2023 take 50 mg by mouth twice daily Topiramate Discontinued 50 MG PO TWICE A DAY 180 April 06, 2023 12:00am May 31, 2023 6:10pm valACYclovir 1000 mg oral tablet (4 sources) Herpesvirus Nucleoside Analog DNA Polymerase Inhibitor, Herpes Simplex Virus Nucleoside Analog DNA Polymerase Inhibitor, Herpes Zoster Virus Nucleoside Analog DNA Polymerase Inhibitor Start: 08-08-2022 End: 08-15-2022 take 1000 mg by mouth three times daily Valacyclovir Discontinued 1000 MG PO THREE TIMES A DAY 10 03August 08, 2022 1:00am August 15, 2022 1:04am Problems Active Problems Problem Classification Problem Date Documented Date Episodic/Chronic Anxiety disorders (4 sources) Anxiety; Translations: [Anxiety disorder, unspecified] 08-07-2018 Chronic Chronic obstructive pulmonary disease and bronchiectasis (4 sources) Bronchitis; Translations: [Bronchitis, not specified as acute or chronic] 11-05-2019 Episodic Deficiency and other anemia (4 sources) Anemia; Translations: [Anemia, unspecified] 08-07-2018 Episodic Disorders of lipid metabolism (4 sources) Mixed hyperlipidemia; Translations: [Mixed hyperlipidemia] 07-25-2017 Chronic Esophageal disorders (4 sources) Gastroesophageal reflux disease; Translations: [Gastro-esophageal reflux disease without esophagitis] 08-22-2019 Chronic Headache; including migraine (3 sources) Refractory migraine with aura; Translations: [Persistent migraine aura without cerebral infarction, intractable, without status migrainosus] 04-06-2023 Chronic Nonspecific chest pain (4 sources) Chest pain; Translations: [Chest pain, unspecified] 07-11-2018 Episodic Other connective tissue disease (4 sources) Radicular pain; Translations: [Neuralgia and neuritis, unspecified] 11-20-2018 Episodic Other disorders of stomach and duodenum (4 sources) Indigestion; Translations: [Functional dyspepsia] 07-11-2018 Episodic Other lower respiratory disease (4 sources) Dyspnea; Translations: [Dyspnea, unspecified] 07-26-2017 Episodic Other nervous system disorders (4 sources) Pins and needles; Translations: [Paresthesia of skin] 09-10-2018 Episodic Other nervous system disorders (4 sources) Perez's palsy; Translations: [Perez's palsy] 09-10-2018 Episodic Other nervous system disorders (4 sources) Numbness of hand; Translations: [Anesthesia of skin] 11-20-2018 Episodic Other non-traumatic joint disorders (1 source) Shoulder pain; Translations: [Pain in right shoulder] Episodic Other non-traumatic joint disorders (3 sources) Pain in right shoulder; Translations: [Right shoulder pain] 12-19-2018 Episodic Other nutritional; endocrine; and metabolic disorders (1 source) Morbid obesity; Translations: [Morbid (severe) obesity due to excess calories] Chronic Other nutritional; endocrine; and metabolic disorders (3 sources) Obesity caused by energy imbalance; Translations: [Morbid (severe) obesity due to excess calories] 07-25-2017 Chronic Other upper respiratory infections (6 sources) Maxillary sinusitis; Translations: [Chronic maxillary sinusitis] Onset: 11-17-2023 08-24-2019 Chronic Otitis media and related conditions (11 sources) Acute left otitis media; Translations: [Otitis media, unspecified, left ear] 04-06-2023 Episodic Spondylosis; intervertebral disc disorders; other back problems (4 sources) Pain in cervical spine; Translations: [Cervicalgia] 11-20-2018 Episodic Thyroid disorders (5 sources) Acquired hypothyroidism; Translations: [Hypothyroidism, unspecified] Onset: 08-23-2023 08-24-2019 Chronic Viral infection (4 sources) Herpes zoster; Translations: [Zoster without complications] 08-08-2022 Episodic Past or Other Problems Problem Classification Problem Date Documented Da te Episodic/Chronic Other screening for suspected conditions (not mental disorders or infectious disease) (4 sources) Patient encounter status; Translations: [Encounter for screening mammogram for malignant neoplasm of breast] Onset: 08-30-2023 08-16-2023 Episodic Results Test Name Value Interpretation Reference Range Facility Operative Reporton 4 Operative Report [facility] Medical Records Department [address] [place] [address] Operative Report 01/08/24 1010 MR#: [id number] Acct: [id number] Name: KELLEE DANIEL Rep #: [id number] : 1970 53 From: Geoff Kirkland MD PCP: JOSE RAFAEL SchwartzC Status:[facility] Location: [place] [address] Report of Operation Date of Procedure: 01/08/24 Pre-Operative Diagnosis: chronic sinusitis Post-Operative Diagnosis: same Surgery/Procedure Performed:: bilateral total ethmoidectomy bilateral maxillary antrostomy Surgeon: Geoff Kirkland Type of Anesthesia: General Estimated Blood Loss (mL): minimal Description of Procedure: The patient was taken to the operating room on 01/08/2024. The patient was placed in the supine position on the operating table. The patient was given sufficient general endotracheal anesthesia. The head of bed was elevated 30 degrees. The navigation system was placed and verified per protocol and found to be accurate. 0 and 30 degrees rigid nasal endoscopes were used throughout the entire case. The middle turbinate uncinate process and polyps were injected with 1% lidocaine with epinephrine bilaterally. The right middle turbinate was medialized with a Hilliard elevator. A ball- tipped sinus seeker was placed into the patient's maxillary sinus. The antrostomy was created with a backbiter. Thick secretions were suctioned from the maxillary sinus with a curved suction. The uncinate process was taken down using a microdebrider. Next, the ethmoid bulla was opened with a small curette. Anterior and posterior ethmoidectomy were then carried out using curette, sinus shaver and 45 degree Blakesley Missael forceps. Ethmoid cells were verified for relation to the skull base and orbit prior to being entered with the navigation system. I then placed Afrin pledgets into the sinonasal cavity. Next attention was turned to the left side. The middle turbinate was medialized with a Hilliard elevator. A large polyp was removed from the middle meatus using a sinus shaver. The uncinate process was taken down using a sinus shaver. The maxillary antrostomy was created with a back biter. The ethmoid bulla was opened with a small curette. Anterior and posterior ethmoidectomy were then carried out using a sinus shaver curette and Blakesley Missael forceps. Ethmoid cells were verified for relation to the skull base and orbit prior to being entered with the navigation system. Hemostasis was then achieved using Afrin pledgets. The pledgets were then removed bilaterally and Ravindra powder was applied bilaterally for absolute hemostasis. The procedure was then terminated. The patient was then awoken and brought to the recovery room in stable condition blood loss less than 10 cc, replacement none. Sponge, needle, instrument count were correct at the end of the procedure. 01/08/24 1115 Cosigner Signature (if applicable): CC: WILLIAM Gallo; Dr. Geoff Kirkland MD Signed Normal [facility] Surgery Specimen Level Syd 01-08-2024 Surgery Specimen Level IV -------- Patient Age/Sex Location Account Attending Physician -------- KELLEE DANIEL 53/[place] [facility] [id number]. Geoff Kirkland MD -------- Specimen: [id number] Received: 01/08/24 Status: CELI Iglesias Num: [id number] Spec Type: ETH TISS Subm Dr: Dr. Geoff Kirkland MD HEADER OPERATION: Functional endoscopic sinus surgery, navigation PRE-OP DIAGNOSIS: Other chronic sinusitis, hypertrophy of nasal turbinates, nasal congestion, deviated nasal septum TISSUE SUBMITTED: A- Left sinus content, B- Right sinus content -------- MICROSCOPIC DIAGNOSIS A. Left sinus content: Chronic sinusitis. Bone with no pathologic change. B. Right sinus content: Chronic sinusitis. Bone with no pathologic change. / 01/11/2024 MICROSCOPIC DESCRIPTION Slides are reviewed. GROSS DESCRIPTION A. Received in fixative is one container labeled with the patient's name and designated Left sinus contents. The specimen consists of multiple irregular and indurated fragments of pink-bartlett gritty tissue measuring in aggregate 2.0 x 1.0 x 0.1cm. The specimen is totally submitted in one cassette after decalcification. B. Received in fixative is one container labeled with the patient's name and designated Right sinus contents. The specimen consists of multiple irregular and indurated fragments of pink-bartlett gritty tissue measuring in aggregate 2.5 x 1.0 x 0.1cm. The specimen is totally submitted in one cassette after decalcification. / 01/08/2024 TC:3 CPT:[id number],93902 x2 -------- Patient Age/Sex Location Account Attending Physician -------- KELLEE DANIEL 53/F [facility] [place] [id number] Dr. Geoff Kirkland MD -------- Signed (signature on file) Dr. Jhon Anderson DO 01/11/24 1318 -------- Normal [facility] Comment on above: Performed By: #### P SUIV ####[facility] [address] [place], [address] 12 Lead EKGon 01-04-2024 12 Lead EKG [facility] Cardiovascular Services [address] [place] [address] 12 Lead EKG 01/04/24 1334 MR#: [id number] Acct: [id number] Name: KELLEE DANIEL Rep #: [id number] : 1970 53 From: Son Yoon MD Attending Dr: Dr. Geoff Kirkland MD Status: REG [facility] [place] Ordering Dr: Geoff Kirkland MD Date: 01/04/24 Location: Sex: F C Admitted: Test Reason : PRE OP Blood Pressure : / mmHG Vent. Rate : 075 BPM Atrial Rate : 075 BPM P-R Int : 114 ms QRS Dur : 082 ms QT Int : 406 ms P-R-T Axes : 011 012 044 degrees QTc Int : 453 ms Normal sinus rhythm Normal ECG Confirmed by Son Yoon ([id number]), editorial assistant GLENIS SHANKAR ([id number]) on 01/08/2024 10:06:00 AM Referred By: Geoff Kirkland Confirmed By:Son Yoon 01/08/24 1006 Date Son Yoon MD CC: PIER WORKER-Andreina Gallo; Dr. Geoff Kirkland MD Signed Normal [facility] Basic Metabolic Profile (BMP )on 01-04-2024 BUN/CRE 19.4 RATIO Normal - [facility] Comment on above: Performed By: #### L 500.2500, L100.0500 #### [facility] [address] [facility] [place], [address] CA,Total 8.7 mg/dL Normal 8.5-10.1 [facility] Comment on above: Performed By: #### L 500.2500, L100.0500 #### [facility] [address] [facility] [place], [address] Chloride [Moles/Vol] 107 mmol/L Normal 98-107 [facility] Comment on above: Performed By: #### L 500.2500, L100.0500 #### [facility] [address] [place] [place], [address] CO2 [Moles/Vol] 28.0 mmol/L Normal 21.0-32.0 [facility] Comment on above: Performed By: #### L 500.2500, L100.0500 #### [facility] [address] [place], [address] Creatinine [Mass/Vol] 0.77 mg/dL Normal 0.55-1.02 [facility] Comment on above: Result Comment: The validity of the calculated GFR GFRAA in patients over 70 years has not been determined. Clinical correlation is essential. Performed By: #### L 500.2500, L100.0500 #### [facility] [address] [place], [address] EST GFR - AA 101 mL/min Normal >60 [facility] Comment on above: Result Comment: Afri can [place] GFR Calc Performed By: #### L 500.2500, L100.0500 #### [facility] [address] [place], [address] GAP 2 Low 5-15 [facility] Comment on above: Performed By: #### L 500.2500, L100.0500 #### [facility] [address] [place], [address] GFR/1.73 sq M.predicted among non-blacks MDRD (S/P/Bld) [Vol rate/Area] 83 mL/min/{1.73_m2} Normal >60 [facility] Comment on above: Result Comment: Non- GFR Calc Performed By: #### L 500.2500, L100.0500 #### [facility] [address] [place], [address] Glucose [Mass/Vol] 66 mg/dL Low 74-106 [facility] Comment on above: Performed By: #### L 500.2500, L100.0500 #### [facility] [address] [place], [address] Potassium [Moles/Vol] 3.8 mmol/L Normal 3.5-5.1 [facility] Comment on above: Performed By: #### L 500.2500, L100.0500 #### [facility] [address] [place], [address] Sodium [Moles/Vol] 137 mmol/L Normal 136-145 [facility] Comment on above: Performed By: #### L 500.2500, L100.0500 #### [facility] [address] [place], [address] Urea nitrogen [Mass/Vol] 15 mg/dL Normal 7-18 [facility] Comment on above: Performed By: #### L 500.2500, L100.0500 #### [facility] [address] [place], [address] CBC-Complete Blood Cnt No Di ffon 01-04-2024 Erythrocyte distribution width (RBC) [Ratio] 14.6 % Normal 11.6-14.6 [facility] Comment on above: Performed By: #### L 500.2500, L100.0500 #### [facility] [address] [place], [address] Hematocrit (Bld) [Volume fraction] 39.7 % Normal 37-47 [facility] Comment on above: Performed By: #### L 500.2500, L100.0500 #### [facility] [address] [place], [address] Hemoglobin (Bld) [Mass/Vol] 12.4 g/dL Normal 12.0-15.0 [facility] Comment on above: Performed By: #### L 500.2500, L100.0500 #### [facility] [address] [place], [address] MCH (RBC) [Entitic mass] 26.6 pg Low 27.0-32.0 [facility] Comment on above: Performed By: #### L 500.2500, L100.0500 #### [facility] [address] [place], [address] MCHC (RBC) [Mass/Vol] 31.2 g/dL Low 32-36 [facility] Comment on above: Performed By: #### L 500.2500, L100.0500 #### [facility] [address] [place], [address] MCV (RBC) [Entitic vol] 85.2 fL Normal 81-99 [facility] Comment on above: Performed By: #### L 500.2500, L100.0500 #### [facility] [address] [place], [address] Platelet mean volume (Bld) [Entitic vol] 9.8 fL Normal 6.2-12.0 [facility] Comment on above: Performed By: #### L 500.2500, L100.0500 #### [facility] [address] [place], [address] Platelets (Bld) [#/Vol] 459 10*3/uL High 150-450 [facility] Comment on above: Performed By: #### L 500.2500, L100.0500 #### [facility] [address] [place], [address] RBC (Bld) [#/Vol] 4.66 10*6/uL Normal 4.2-5.4 [facility] Comment on above: Performed By: #### L 500.2500, L100.0500 #### [facility] [address] [place], [address] RDW SD 44.3 fl High 35.1-43.9 [facility] Comment on above: Performed By: #### L 500.2500, L100.0500 #### [facility] [address] [place], [address] WBC (Bld) [#/Vol] 7.8 10*3/uL Normal 4.4-11.0 [facility] Comment on above: Performed By: #### L 500.2500, L100.0500 #### [facility] [address] [place], [address] Thyroid Stim Hormone (TSH)on 01-04-2024 TSH 1.55 uIU/mL Normal 0.358-3.74 [facility] Comment on above: Performed By: #### L 501.9520 #### [facility] [address] [place], [address] Sinus/Facial Boneon 11-14-19 24 Sinus/Facial Bone [facility] Imaging Services [address] [place] [address] Sinus/Facial Bone MR#: [id number] Acct: [id number] Name: KELLEE DANIEL Rep #: [id number] : 1970 F 53 From: Jake ram MD PCP: WILLIAM Schwartz Status: REG CLI Study: Sinus/Facial Bone Date of Exam: 11/14/23 Exam# [id number] Ordering Dr: Geoff Kirkland MD [id number] STUDY: CT MAXILLOFACIAL SINUSES REASON FOR EXAM: Female, 53 years old. SINUSITIS RADIATION DOSAGE (If Supplied By Facility): CTDIvol = ( 33.06 ) mGy, DLP = ( 767.73 ) mGycm TECHNIQUE: The patient was scanned in a multi detector CT scanner. High resolution axial imaging was performed without the administration of intravenous contrast material. Sagittal and coronal images were reconstructed. Individualized dose optimization techniques were used for this CT. COMPARISON: None. FINDINGS: FRONTAL SINUSES: Normal aeration, without mucosal inflammatory disease. ETHMOIDAL SINUSES: Partial opacification of the ethmoid sinuses worse on the left side. MAXILLARY SINUSES: Opacification of the right maxillary sinus. SPHENOIDAL SINUSES: Mucosal thickening of the anterior aspects of the sphenoid sinuses bilaterally. Compromise of the right ostiomeatal complex due to mucosal hypertrophy. There are nikkie bullosa of the bilateral turbinates. There is hypertrophy of the left inferior nasal turbinate. There is a left sided nasal septal deviation, but without a nasal septal spur. There is patency of the bilateral nasal airways. The visualized osseous structures are normal. The visualized bilateral orbital contents are normal. CT/Sinus/Facial Bone IMPRESSION: Opacification of the right maxillary sinus with compromise of the right ostiomeatal complex due to mucosal hypertrophy. Partial opacification of the ethmoid sinuses worse on the left side. Mucosal thickening along the anterior aspect of the sphenoid sinuses bilaterally. Electronically Signed: Jake Hoffman MD at 10:22 EDT , CC: WILLIAM Gallo; Dr. Geoff Kirkland MD Professor Of Legal Studies: Signed Normal [facility] SCRN MAMM (CAD)W/KG BILATo n 08-25-2023 SCRN MAMM (CAD)W/KG BILAT [facility] Imaging Services [address] [place] [address] SCRN MAMM (CAD)W/KG BILAT MR#: [id number] Acct: [id number] Name: KELLEE DANIEL Rep #: [id number] : 1970 F 53 From: Jake ram MD PCP: WILLIAM Schwartz Status: REG CLI Study: SCRN MAMM (CAD)W/KG BILAT Date of Exam: 01/11 Exam# [id number] Ordering Dr: Candy Gallo NP N P-C [id number] MAMMOGRAPHY - BILATERAL SCREENING REASON FOR EXAM: Female, 53 years old. Routine annual screening examination. PERTINENT HISTORY: Grandmother with breast cancer. TECHNIQUE: Digital bilateral breast kg (3D mammographic acquisition) in the CC and MLO projections. 2-D mediolateral oblique (MLO) and craniocaudad (CC) views of both breasts were obtained. CAD: Full Field Digital Mammography with Computer Added Detection was performed. COMPARISON: Comparison is made with prior outside examination dated January 26, 2010. FINDINGS: Breast Composition: There are scattered areas of fibroglandular density. There are no dominant masses or suspicious calcifications. Stable small benign-appearing bilateral axillary lymph nodes. No other significant abnormalities are identified. There has been no significant change since the prior study. BI/SCRN MAMM (CAD)W/KG BILAT IMPRESSION: Stable bilateral screening mammogram. Yearly follow-up mammogram recommended. (A) ASSESSMENT CATEGORY: BIRADS Category 2: Benign. A letter regarding these results will be sent to the patient by the facility within 30 days. Approximately 10% of breast cancers are not detected by mammography. A normal mammogram should not delay biopsy of a clinically suspicious abnormality. [id number] Electronically Signed: Jake Hoffman MD at 15:01 EST Reading Location ID and State: [address] [place] [address] , Service support , CC: WILLIAM Gallo Professor Of Legal Studies: Signed Normal [facility] CBC W/Diff, Automatedon 12-2 Absolute Lymph 2.29 X10 3/uL Normal 0.83-4.51 [facility] Comment on above: Performed By: #### L 100.0100, L500.4100, L501.9520, L500.4050 #### [facility] [address] [place], [place], [id number] Absolute Neut 4.0 X10 3/uL Normal 2.0-7.7 [facility] Comment on above: Performed By: #### L 100.0100, L500.4100, L501.9520, L500.4050 #### [facility] [address] [place], [address] Basophils/100 WBC (Bld) 0.6 % Normal 0-1 [facility] Comment on above: Performed By: #### L 100.0100, L500.4100, L501.9520, L500.4050 #### [facility] [address] [place], [address] Eosinophils/100 WBC (Bld) 4.8 % Normal 0-5 [facility] Comment on above: Performed By: #### L 100.0100, L500.4100, L501.9520, L500.4050 #### [facility] [address] [place], [address] Erythrocyte distribution width (RBC) [Ratio] 13.7 % Normal 11.6-14.6 [facility] Comment on above: Performed By: #### L 100.0100, L500.4100, L501.9520, L500.4050 #### [facility] [address] [place], [address] Hematocrit (Bld) [Volume fraction] 38.1 % Normal 37-47 [facility] Comment on above: Performed By: #### L 100.0100, L500.4100, L501.9520, L500.4050 #### [facility] [address] [place], [address] Hemoglobin (Bld) [Mass/Vol] 12.1 g/dL Normal 12.0-15.0 [facility] Comment on above: Performed By: #### L 100.0100, L500.4100, L501.9520, L500.4050 #### [facility] [address] [place], [address] IG% 0.300 Normal 0.0-0.9 [facility] Comment on above: Result Comment: IG% - Immature Granulocytes (promyelocytes, myelocytes and metamyelocytes) > 1% indicates that a LEFT SHIFT is Present. Performed By: #### L 100.0100, L500.4100, L501.9520, L500.4050 #### [facility] [address] [place], [address] Lymphocytes/100 WBC (Bld) 32.4 % Normal 19-41 [facility] Comment on above: Performed By: #### L 100.0100, L500.4100, L501.9520, L500.4050 #### [facility] [address] [place], [address] MCH (RBC) [Entitic mass] 27.4 pg Normal 27.0-32.0 [facility] Comment on above: Performed By: #### L 100.0100, L500.4100, L501.9520, L500.4050 #### [facility] [address] [place], [address] MCHC (RBC) [Mass/Vol] 31.8 g/dL Low 32-36 [facility] Comment on above: Performed By: #### L 100.0100, L500.4100, L501.9520, L500.4050 #### [facility] [address] [place], [address] MCV (RBC) [Entitic vol] 86.4 fL Normal 81-99 [facility] Comment on above: Performed By: #### L 100.0100, L500.4100, L501.9520, L500.4050 #### [facility] [address] [place], [address] Monocytes/100 WBC (Bld) 5.8 % Normal 0-10 [facility] Comment on above: Performed By: #### L 100.0100, L500.4100, L501.9520, L500.4050 #### [facility] [address] [place], [address] Neutrophils/100 WBC (Bld) 56.1 % Normal 47-70 [facility] Comment on above: Performed By: #### L 100.0100, L500.4100, L501.9520, L500.4050 #### [facility] [address] [place], [address] Nucleated RBC (Bld) [#/Vol] 0 10*3/uL Normal 0-5 [facility] Comment on above: Performed By: #### L 100.0100, L500.4100, L501.9520, L500.4050 #### [facility] [address] [place], [address] Platelet mean volume (Bld) [Entitic vol] 12.7 fL High 6.2-12.0 [facility] Comment on above: Performed By: #### L 100.0100, L500.4100, L501.9520, L500.4050 #### [facility] [address] [place], [address] Platelets (Bld) [#/Vol] 403 10*3/uL Normal 150-450 [facility] Comment on above: Performed By: #### L 100.0100, L500.4100, L501.9520, L500.4050 #### [facility] [address] [place], [address] RBC (Bld) [#/Vol] 4.41 10*6/uL Normal 4.2-5.4 [facility] Comment on above: Performed By: #### L 100.0100, L500.4100, L501.9520, L500.4050 #### [facility] [address] [place], [address] RDW SD 42.3 fl Normal 35.1-43.9 [facility] Comment on above: Performed By: #### L 100.0100, L500.4100, L501.9520, L500.4050 #### [facility] [address] [place], [address] WBC (Bld) [#/Vol] 7.1 10*3/uL Normal 4.4-11.0 [facility] Comment on above: Performed By: #### L 100.0100, L500.4100, L501.9520, L500.4050 #### [facility] [address] [place], [address] Comprehensive Metabolic [facility] 08-17-2023 Albumin [Mass/Vol] 3.2 g/dL Normal 3.2-5.0 [facility] Comment on above: Performed By: #### L 100.0100, L500.4100, L501.9520, L500.4050 #### [facility] [address] [place], [address] Albumin/Globulin [Mass ratio] 0.8 {ratio} Low 0.9-2.4 [facility] Comment on above: Performed By: #### L 100.0100, L500.4100, L501.9520, L500.4050 #### [facility] [address] [place], [address] ALK P 68 U/L Normal 45-117 [facility] Comment on above: Performed By: #### L 100.0100, L500.4100, L501.9520, L500.4050 #### [facility] [address] [place], [address] ALT [Catalytic activity/Vol] 26 U/L Normal 13-56 [facility] Comment on above: Performed By: #### L 100.0100, L500.4100, L501.9520, L500.4050 #### [facility] [address] [place], [address] AST [Catalytic activity/Vol] 22 U/L Normal 15-37 [facility] Comment on above: Performed By: #### L 100.0100, L500.4100, L501.9520, L500.4050 #### [facility] [address] [place], [address] Bilirubin [Mass/Vol] 0.20 mg/dL Normal 0.20-1.00 [facility] Comment on above: Result Comment: For patients on eltrombopag therapy, use of Dimension [place] TBIL is not recommended. Performed By: #### L 100.0100, L500.4100, L501.9520, L500.4050 #### [facility] [address] [place], [address] BUN/CRE 12.9 RATIO Normal 10-20 [facility] Comment on above: Performed By: #### L 100.0100, L500.4100, L501.9520, L500.4050 #### [facility] [address] [place], [address] CA,Total 8.3 mg/dL Low 8.5-10.1 [facility] Comment on above: Performed By: #### L 100.0100, L500.4100, L501.9520, L500.4050 #### [facility] [address] [place], [address] Chloride [Moles/Vol] 107 mmol/L Normal 98-107 [facility] Comment on above: Performed By: #### L 100.0100, L500.4100, L501.9520, L500.4050 #### [facility] [address] [place], [address] CO2 [Moles/Vol] 29.0 mmol/L Normal 21.0-32.0 [facility] Comment on above: Performed By: #### L 100.0100, L500.4100, L501.9520, L500.4050 #### [facility] [address] [place], [address] Creatinine [Mass/Vol] 1.16 mg/dL High 0.55-1.02 [facility] Comment on above: Result Comment: The validity of the calculated GFR GFRAA in patients over 70 years has not been determined. Clinical correlation is essential. Performed By: #### L 100.0100, L500.4100, L501.9520, L500.4050 #### [facility] [address] [place], [address] EST GFR - AA 63 mL/min Normal >60 [facility] Comment on above: Result Comment: Afri can [place] GFR Calc Performed By: #### L 100.0100, L500.4100, L501.9520, L500.4050 #### [facility] [address] [place], [address] GAP 5 Normal 5-15 [facility] Comment on above: Performed By: #### L 100.0100, L500.4100, L501.9520, L500.4050 #### [facility] [address] [place], [address] GFR/1.73 sq M.predicted among non-blacks MDRD (S/P/Bld) [Vol rate/Area] 52 mL/min/{1.73_m2} Low >60 [facility] Comment on above: Result Comment: Non- GFR Calc Performed By: #### L 100.0100, L500.4100, L501.9520, L500.4050 #### [facility] [address] [place], [address] Globulin (S) [Mass/Vol] 4.2 g/dL Normal 2.2-4.2 [facility] Comment on above: Performed By: #### L 100.0100, L500.4100, L501.9520, L500.4050 #### [facility] [address] [place], [address] Glucose [Mass/Vol] 101 mg/dL Normal 74-106 [facility] Comment on above: Result Comment: Fast ing Glucose result from 100 to 125 mg/dL suggests IMPAIRED HOMEOSTASIS per A.D.A. criteria. Performed By: #### L 100.0100, L500.4100, L501.9520, L500.4050 #### [facility] [address] [place], [address] Potassium [Moles/Vol] 4.2 mmol/L Normal 3.5-5.1 [facility] Comment on above: Performed By: #### L 100.0100, L500.4100, L501.9520, L500.4050 #### [facility] [address] [place], [address] Sodium [Moles/Vol] 141 mmol/L Normal 136-145 [facility] Comment on above: Performed By: #### L 100.0100, L500.4100, L501.9520, L500.4050 #### [facility] [address] [place], [address] T PROT 7.4 g/dL Normal 6.4-8.2 [facility] Comment on above: Performed By: #### L 100.0100, L500.4100, L501.9520, L500.4050 #### [facility] [address] [place], [address] Urea nitrogen [Mass/Vol] 15 mg/dL Normal 7-18 [facility] Comment on above: Performed By: #### L 100.0100, L500.4100, L501.9520, L500.4050 #### [facility] [address] [place], [address] Lipid Profileon 08-17-2023 Cholesterol [Mass/Vol] 183 mg/dL Normal 200 [facility] Comment on above: Result Comment: <200 mg/dL Desirable 200-240 mg/dL Borderline >240 mg/dL High Risk Performed By: #### L 100.0100, L500.4100, L501.9520, L500.4050 ####[facility] [address] [place], [address] Cholesterol in HDL [Mass/Vol] 28 mg/dL Low [facility] Comment on above: Result Comment: The drugs N-Acetylcysteine and Metamizole may falsely depress this assay. Reference Range HDL <40 mg/dL Low HDL Cholesterol HDL >or= 60 mg/dL High HDL Cholesterol Performed By: #### L 100.0100, L500.4100, L501.9520, L500.4050 ####[facility] [address] [place], [address] Cholesterol in LDL [Mass/Vol] 92 mg/dL Normal 0-130 [facility] Comment on above: Performed By: #### L 100.0100, L500.4100, L501.9520, L500.4050 ####[facility] [address] [place], [address] Cholesterol in VLDL [Mass/Vol] 63 mg/dL High 5-40 [facility] Comment on above: Performed By: #### L 100.0100, L500.4100, L501.9520, L500.4050 ####[facility] [address] [place], [address] Triglyceride [Mass/Vol] 316 mg/dL High [facility] Comment on above: Result Comment: The drugs N-Acetylcysteine and Metamizole may falsely depress this assay. Serum Triglycerides Reference Interval Normal <150 mg/dL Borderline high 150 - 199 mg/dL High 200 - 499 mg/dL Very High > or = 500 mg/dL Performed By: #### L 100.0100, L500.4100, L501.9520, L500.4050 ####[facility] [address] [place], [address] Thyroid Stim Hormone (TSH)on 08-17-2023 TSH 0.79 uIU/mL Normal 0.358-3.74 [facility] Comment on above: Performed By: #### L 100.0100, L500.4100, L501.9520, L500.4050 ####[facility] [address] [place], [place], [id number] Absolute lymphocyte countOrd ered By: Candy Gallo on 08-16-2023 Lymphocytes Auto (Unsp spec) [#/Vol] 2.29 10*3/uL 0.83-4.51 [facility] Basophil percentageOrdered B y: Candy Gallo on 08-16-2023 Basophils/100 WBC (Bld) 0.6 % 0-1 [facility] Bilirubin [Mass/Vol] 0.20 mg/dL 0.20-1.00 [facility] Comment on above: For patients on eltr ombopag therapy, use of Dimension [place] TBIL is not recommended. Chloride [Moles/Vol] 107 mmol/L 98-107 [facility] Cholesterol [Mass/Vol] 183 mg/dL <200 [facility] Comment on above: <200 mg/dL Desirable 200-240 mg/dL Borderline >240 mg/dL High Risk Eosinophils/100 WBC (Bld) 4.8 % 0-5 [facility] Glucose [Mass/Vol] 101 mg/dL 74-106 [facility] Comment on above: Fasting Glucose resu lt from 100 to 125 mg/dL suggests IMPAIRED HOMEOSTASIS per A.D.A. criteria. Neutrophils (Bld) [#/Vol] 4.0 10*3/uL 2.0-7.7 [facility] Neutrophils/100 WBC (Bld) 56.1 % 47-70 [facility] Potassium [Moles/Vol] 4.2 mmol/L 3.5-5.1 [facility] Protein [Mass/Vol] 7.4 g/dL 6.4-8.2 [facility] Sodium [Moles/Vol] 141 mmol/L 136-145 [facility] Triglyceride [Mass/Vol] 316 mg/dL <199 [facility] Comment on above: The drugs N-Acetylcy steine and Metamizole may falsely depress this assay.Serum Triglycerides Reference Interval Normal <150 mg/dL Borderline high 150 - 199 mg/dL High 200 - 499 mg/dL Very High > or = 500 mg/dL WBC (Bld) [#/Vol] 7.1 10*3/uL 4.4-11.0 [facility] Blood erythrocytes count (nu mber/volume)Ordered By: Candy Gallo on 08-16-2023 RBC (Bld) [#/Vol] 4.41 10*6/uL 4.2-5.4 [facility] Blood hemoglobin measurement (mass/volume)Ordered By: Candy Gallo on 08-16-2023 Hemoglobin (Bld) [Mass/Vol] 12.1 g/dL 12.0-15.0 [facility] Blood lymphocytes/100 leukoc ytesOrdered By: Candy Gallo on 08-16-2023 Lymphocytes/100 WBC (Bld) 32.4 % 19-41 [facility] Blood monocytes/100 leukocyt esOrdered By: Candy Gallo on 08-16-2023 Monocytes/100 WBC (Bld) 5.8 % 0-10 [facility] Blood platelet mean volumeOr dered By: Candy Gallo on 08-16-2023 Platelet mean volume (Bld) [Entitic vol] 12.7 fL 6.2-12.0 [facility] Determination of erythrocyte mean corpuscular volume (MCV)Ordered By: Candy Gallo on 08-16-2023 MCV (RBC) [Entitic vol] 86.4 fL 81-99 [facility] Hematocrit Auto (Bld) [Volum e fraction]Ordered By: Candy Glalo on 08-16-2023 Hematocrit (Bld) [Volume fraction] 38.1 % 37-47 [facility] - Chemistry and C hemistry - challengeOrdered By: Candy Gallo on 08-16-2023 ALP [Catalytic activity/Vol] 68 U/L 45-117 [facility] ALT [Catalytic activity/Vol] 26 U/L 13-56 [facility] CO2 [Moles/Vol] 29.0 mmol/L 21.0-32.0 [facility] Globulin (S) [Mass/Vol] 4.2 g/dL 2.2-4.2 [facility] Urea nitrogen/Creatinine [Mass ratio] 12.9 mg/mg 10-20 [facility] - Hematology and Cell countsOrdered By: Candy Gallo on 08-16-2023 Erythrocyte distribution width (RBC) [Entitic vol] 42.3 fL 35.1-43.9 [facility] Erythrocyte distribution width (RBC) [Ratio] 13.7 % 11.6-14.6 [facility] Immature granulocytes/100 WBC (Bld) 0.300 % 0.0-0.9 [facility] Comment on above: IG% - Immature Granu locytes (promyelocytes, myelocytes and metamyelocytes) > 1% indicates that a LEFT SHIFT is Present. MCH (RBC) [Entitic mass] 27.4 pg 27.0-32.0 [facility] Nucleated RBC/100 WBC (Bld) [Ratio] 0 % 0-5 [facility] MCHC Auto (RBC) [Mass/Vol]Or dered By: Candy Gallo on 08-16-2023 MCHC (RBC) [Mass/Vol] 31.8 g/dL 32-36 [facility] No Panel InformationOrdered By: Candy Gallo on 08-16-2023 Estimated GFR (MDRD) Amer 63 mL/min >60 [facility] Comment on above: GFR Calc Estimated GFR (MDRD) Non-Af Amer 52 mL/min >60 [facility] Comment on above: Non- GFR Calc Thyroid Stimulating Hormone (TSH) 0.79 uIU/mL 0.358-3.74 [facility] Platelets bldOrdered By: Duong Gallo on 08-16-2023 Platelets (Bld) [#/Vol] 403 10*3/uL 150-450 [facility] Serum or plasma albumin sumanth urement (mass/volume)Ordered By: Candy Gallo on 08-16-2023 Albumin [Mass/Vol] 3.2 g/dL 3.2-5.0 [facility] Serum or plasma albumin/glob ulin mass ratioOrdered By: Candy Gallo on 08-16-2023 Albumin/Globulin [Mass ratio] 0.8 {ratio} 0.9-2.4 [facility] Serum or plasma calcium sumanth urement (mass/volume)Ordered By: Candy Gallo on 08-16-2023 Calcium [Mass/Vol] 8.3 mg/dL 8.5-10.1 [facility] Serum or plasma cholesterol in HDL measurement (mass/volume)Ordered By: Candy Gallo on 08-16-2023 Cholesterol in HDL [Mass/Vol] 28 mg/dL >40 [facility] Comment on above: The drugs N-Acetylcy steine and Metamizole may falsely depress this assay. Reference Range HDL <40 mg/dL Low HDL Cholesterol HDL >or= 60 mg/dL High HDL Cholesterol Serum or plasma cholesterol in VLDL measurement (mass/volume)Ordered By: Candy Gallo on 08-16-2023 Cholesterol in VLDL [Mass/Vol] 63 mg/dL 5-40 [facility] Serum or plasma creatinine m easurement (mass/volume)Ordered By: Candy Gallo on 08-16-2023 Creatinine [Mass/Vol] 1.16 mg/dL 0.55-1.02 [facility] Comment on above: The validity of the calculated GFR & GFRAA in patients over 70 years has not been determined. Clinical correlation is essential. Serum or plasma low density lipoprotein (LDL) cholesterol measurement (mass/volume)Ordered By: Candy Gallo on 08-16-2023 Cholesterol in LDL [Mass/Vol] 92 mg/dL 0-130 [facility] Serum or plasma urea nitroge n measurement (mass/volume)Ordered By: Candy Gallo on 08-16-2023 Urea nitrogen [Mass/Vol] 15 mg/dL 7-18 [facility] Thin prep Papanicolaou smear with manual screeningOrdered By: Candy Gallo on 08-16-2023 Thin prep Papanicolaou smear with manual screening 22 U/L 15-37 [facility] Thin prep Papanicolaou smear with manual screening 5 5-15 [facility] Urgent Care Visit Reporton 0 01-27-2023 Urgent Care Visit Report [facility] [address] [place] [address] OFFICE VISIT Date of Service: 01/27/23 MR#: [id number] Acct: [id number] Name: KELLEE DANIEL Rep #: [id number] : 1970 Provider: KIRILL Low Age/Sex: 52/F Location: [facility] Status: Signed Intake Vital Signs 08/18/22 16:16 01/27/23 13:06 Height 5 ft 7 in 5 ft 6 in Weight: 296 lb 296 lb BMI 46.3 47.7 BP 100/70 115/80 Blood Pressure Location Rt brachial Lt brachial Position Sitting Sitting Respiration 18 16 Pulse 79 77 Pulse Source Doppler Monitor Temp 97.7 F L 98.2 F Temp Source Temporal Pulse Oximetry (%) 97 97 Oxygen Delivery Method room air room air Intake Visit Reasons: SINUS, CONGESTION Chief Complaint: Sinus congestion and drainage [employer]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 Accompanied by: Self Is patient in pain?: Yes Pain scale (1-10): 2 Allergies aspirin Allergy (Severe, Verified 09/10/18 20:09) facial swelling cortisone Allergy (Verified 07/26/18 09:46) Itching polyethylene glycol 3350 [From Miralax] Allergy (Verified 01/27/23 13:05) Hives Medications lansoprazole 30 mg capsule,delayed release 30 mg PO BID 07/26/18 [History Confirmed 01/27/23] albuterol sulfate 90 mcg/actuation aerosol inhaler (ProAir HFA) 2 puff inhalation Q6H #8.5 grams 08/04/21 [Rx Confirmed 01/27/23] fluoxetine 20 mg capsule 40 mg PO DAILY #180 caps 08/18/22 [Rx Confirmed 01/27/23] hydroxyzine HCl 10 mg tablet 10 mg PO TID-QID PRN anxiety #45 tabs 08/18/22 [Rx Confirmed 01/27/23] levothyroxine 75 mcg tablet 75 mcg PO DAILY #90 tabs 08/18/22 [Rx Confirmed 01/27/23] amoxicillin 875 mg-potassium clavulanate 125 mg tablet 1 tab PO Q12H 10 days #20 tabs 01/27/23 [Rx Confirmed 01/27/23] methylprednisolone 4 mg tablets in a dose pack (Medrol (Amilcar)) 4 mg PO PER PKG DIR 6 days #21 tabs 01/27/23 [Rx Confirmed 01/27/23] PFSH Medical History Anxiety GERD (gastroesophageal reflux disease) Mixed hyperlipidemia Torn meniscus Surgical History Hx of cholecystectomy S/P arthroscopy of knee Family History Mother CAD (coronary artery disease) Other Cancer Diverticulitis Heart disease High cholesterol Hypertension Pacemaker Social History Smoking Status: Never smoker alcohol intake: current alcohol intake frequency: holidays/special occasions only HPI HPI Chief Complaint: Sinus congestion and drainage Details: KELLEE DANIEL, is a 52 F who presents to the office today for complaint of sinus congestion/pressure and pain for the past 2 weeks. Patient states that this started with allergies type symptoms 2 weeks ago and then has worsened since then. She denies fever, chills, sweats. No nausea, vomiting or diarrhea. No loss of taste or smell. She has tried multiple [id number] medications with little to no relief. No other associated symptoms or alleviating/aggravati ng factors. ROS Const Constitutional: No other (6 system ROS completed with pertinent findings in the HPI otherwise normal.) Exam Const General: cooperative and healthy appearing [facility] Head: normal to inspection Ears: hearing grossly normal bilaterally, TM's normal bilaterally and EAC's normal Nose: nasal discharge purulent Face and sinus: sinus tenderness frontal and maxillary Mouth: oral mucosae normal Throat: abnormal tonsil bilaterally erythema and hypertrophy 1+ and postnasal drainage Resp Effort Inspection: normal respiratory effort Auscultation: Bilateral: Clear to Auscultation Cardio Palpation: normal PMI Rate: regular rate Rhythm: regular rhythm Neuro General: patient alert and CN's II-XI intact bilaterally Psych Appearance: grossly normal Mental Status: mental status grossly normal Coding Level of Care Code Off vis,new,level 3 Diagnoses Maxillary sinusitis J01.00 Chronicity: acute Recurrence: non-recurrent Assessment and Plan Assessment and Plan (1) Maxillary sinusitis: Status: Acute Qualifiers: Chronicity: acute Recurrence: non-recurrent Qualified Code(s): J01.00 - Acute maxillary sinusitis, unspecified Medications: New methylprednisolone (Medrol (Amilcar)) 4 mg PO PER PKG DIR 6 days 21 tabs 0RF amoxicillin-pot clavulanate 875-125 mg 1 TAB PO Q12H 10 days 20 tabs 0RF J01.90 - Acute sinusitis, unspecified Plan Augmentin and Medrol Dosepak as prescribed today. Encouraged to get plenty of rest, drink lots of clear liquids, and use Tylenol or Ibuprofen (unless contraindicated) for fever and comfort. Patient also educated on other symptomatic management techniques. To be seen in 7-10 days if no improvement; sooner if worse (more content not included)... Normal [facility] Absolute lymphocyte counton 08-18-2022 Lymphocytes Auto (Unsp spec) [#/Vol] 2.29 10*3/uL 0.83-4.51 [facility] Work Phone: Basophil percentageon 2021 Basophils/100 WBC (Bld) 0.7 % 0-1 [facility] Work Phone: Bilirubin [Mass/Vol] 0.10 mg/dL 0.20-1.00 [facility] Work Phone: Comment on above: For patients on eltr ombopag therapy, use of Dimension [place] TBIL is not recommended. Chloride [Moles/Vol] 107 mmol/L 98-107 [facility] Work Phone: Cholesterol [Mass/Vol] 176 mg/dL <200 [facility] Work Phone: Comment on above: <200 mg/dL Desirable 200-240 mg/dL Borderline >240 mg/dL High Risk Eosinophils/100 WBC (Bld) 3.4 % 0-5 [facility] Work Phone: Glucose [Mass/Vol] 96 mg/dL 74-106 [facility] Work Phone: Neutrophils (Bld) [#/Vol] 4.5 10*3/uL 2.0-7.7 [facility] Work Phone: Neutrophils/100 WBC (Bld) 58.6 % 47-70 [facility] Work Phone: Potassium [Moles/Vol] 4.6 mmol/L 3.5-5.1 [facility] Work Phone: Protein [Mass/Vol] 7.2 g/dL 6.4-8.2 [facility] Work Phone: Sodium [Moles/Vol] 138 mmol/L 136-145 [facility] Work Phone: Triglyceride [Mass/Vol] 368 mg/dL <199 [facility] Work Phone: Comment on above: The drugs N-Acetylcy steine and Metamizole may falsely depress this assay.Serum Triglycerides Reference Interval Normal <150 mg/dL Borderline high 150 - 199 mg/dL High 200 - 499 mg/dL Very High > or = 500 mg/dL WBC (Bld) [#/Vol] 7.6 10*3/uL 4.4-11.0 [facility] Work Phone: Blood erythrocytes count (nu mber/volume)on 08-18-2022 RBC (Bld) [#/Vol] 4.30 10*6/uL 4.2-5.4 [facility] Work Phone: Blood hemoglobin measurement (mass/volume)on 08-18-2022 Hemoglobin (Bld) [Mass/Vol] 11.4 g/dL 12.0-15.0 [facility] Work Phone: Blood lymphocytes/100 leukoc yteson 08-18-2022 Lymphocytes/100 WBC (Bld) 30.1 % 19-41 [facility] Work Phone: Blood monocytes/100 leukocyt eson 08-18-2022 Monocytes/100 WBC (Bld) 6.8 % 0-10 [facility] Work Phone: Blood platelet mean volumeon 08-18-2022 Platelet mean volume (Bld) [Entitic vol] 11.3 fL 6.2-12.0 [facility] Work Phone: Determination of erythrocyte mean corpuscular volume (MCV)on 08-18-2022 MCV (RBC) [Entitic vol] 86.7 fL 81-99 [facility] Work Phone: Hematocrit Auto (Bld) [Volum e fraction]on 08-18-2022 Hematocrit (Bld) [Volume fraction] 37.3 % 37-47 [facility] Work Phone: Laboratory - Chemistry and C hemistry - challengeon 08-18-2022 ALP [Catalytic activity/Vol] 66 U/L 45-117 [facility] Work Phone: ALT [Catalytic activity/Vol] 34 U/L 13-56 [facility] Work Phone: CO2 [Moles/Vol] 26.0 mmol/L 21.0-32.0 [facility] Work Phone: Globulin (S) [Mass/Vol] 4.2 g/dL 2.2-4.2 [facility] Work Phone: Urea nitrogen/Creatinine [Mass ratio] 19.7 mg/mg 10-20 [facility] Work Phone: Laboratory - Hematology and Cell countson 08-18-2022 Erythrocyte distribution width (RBC) [Entitic vol] 46.3 fL 35.1-43.9 [facility] Work Phone: Erythrocyte distribution width (RBC) [Ratio] 14.6 % 11.6-14.6 [facility] Work Phone: Immature granulocytes/100 WBC (Bld) 0.400 % 0.0-0.9 [facility] Work Phone: Comment on above: IG% - Immature Granu locytes (promyelocytes, myelocytes and metamyelocytes) > 1% indicates that a LEFT SHIFT is Present. MCH (RBC) [Entitic mass] 26.5 pg 27.0-32.0 [facility] Work Phone: Nucleated RBC/100 WBC (Bld) [Ratio] 0 % 0-5 [facility] Work Phone: MCHC Auto (RBC) [Mass/Vol]on 08-18-2022 MCHC (RBC) [Mass/Vol] 30.6 g/dL 32-36 [facility] Work Phone: No Panel Informationon 08-18 Estimated GFR (MDRD) Amer 89 mL/min >60 [facility] Work Phone: Comment on above: GFR Calc Estimated GFR (MDRD) Non-Af Amer 74 mL/min >60 [facility] Work Phone: Comment on above: Non- GFR Calc Thyroid Stimulating Hormone (TSH) 1.31 uIU/mL 0.358-3.74 [facility] Work Phone: Platelets bldon 08-18-2022 Platelets (Bld) [#/Vol] 391 10*3/uL 150-450 [facility] Work Phone: Serum or plasma albumin sumanth urement (mass/volume)on 08-18-2022 Albumin [Mass/Vol] 3.0 g/dL 3.2-5.0 [facility] Work Phone: Serum or plasma albumin/glob ulin mass ratioon 08-18-2022 Albumin/Globulin [Mass ratio] 0.7 {ratio} 0.9-2.4 [facility] Work Phone: Serum or plasma calcium sumanth urement (mass/volume)on 08-18-2022 Calcium [Mass/Vol] 8.3 mg/dL 8.5-10.1 [facility] Work Phone: Serum or plasma cholesterol in HDL measurement (mass/volume)on 08-18-2022 Cholesterol in HDL [Mass/Vol] 31 mg/dL >40 [facility] Work Phone: Comment on above: The drugs N-Acetylcy steine and Metamizole may falsely depress this assay. Reference Range HDL <40 mg/dL Low HDL Cholesterol HDL >or= 60 mg/dL High HDL Cholesterol Serum or plasma cholesterol in VLDL measurement (mass/volume)on 08-18-2022 Cholesterol in VLDL [Mass/Vol] 74 mg/dL 5-40 [facility] Work Phone: Serum or plasma creatinine m easurement (mass/volume)on 08-18-2022 Creatinine [Mass/Vol] 0.86 mg/dL 0.55-1.02 [facility] Work Phone: Comment on above: The validity of the calculated GFR & GFRAA in patients over 70 years has not been determined. Clinical correlation is essential. Serum or plasma low density lipoprotein (LDL) cholesterol measurement (mass/volume)on 08-18-2022 Cholesterol in LDL [Mass/Vol] 71 mg/dL 0-130 [facility] Work Phone: Serum or plasma urea nitroge n measurement (mass/volume)on 08-18-2022 Urea nitrogen [Mass/Vol] 17 mg/dL 7-18 [facility] Work Phone: Thin prep Papanicolaou smear with manual screeningon 08-18-2022 Thin prep Papanicolaou smear with manual screening 15 U/L 15-37 [facility] Work Phone: Thin prep Papanicolaou smear with manual screening 5 5-15 [facility] Work Phone: [facility]10-[facility] KELLEE DANIEL ([id number]) 1970 F Date Time Provider Department 08/10/21 PERLA NELSON LAUREANO During your visit today, we recorded the following information about you: Asia Weems 08/10/2021 2:56 PM Signed PENDING REVIEW Medication Name, dosage and instructions: EUFLEXXA J 7323 20 MG 2 ML 3 INJECTIONS PER LT KNEE 3 WEEKS IN A ROW Date medication order obtained: 08/10/2021 Diagnosis Code: M17.12 CPT code (if applicable): 47889 Medical reason details for medication: LT KNEE INJECTIONS AUTHORIZATION PENDING Insurance Company contacted: [employer] contact name: [employer] REF # [id number] Insurance contact phone: VIA [employer] Asia Weems 08/12/2021 9:43 AM Signed AUTHORIZATION ON FILE SCHEDULE AUTH # [id number] DATES 08/10/2021 THRU 02/05/2022 PLEASE SCHEDULE PER ORDERS BELOW AUTHORIZATION APPROVAL NOTE Please be sure to check with patient about 2021 plan enrollment prior to scheduling. Allergies As of Date: 08/10/2021 Noted Allergy Reaction ASA (ASPIRIN) 10/05/2015 7 - Swelling Date Reviewed: 07/27/2021 Reviewed by: Perla Nelson MD - Fully Assessed Reason for Visit: Insurance Authorization [[id number]] Prescriptions as of 08/12/2021 - lansoprazole (PREVACID) 30 mg capsule twice daily. - FLUoxetine (PROZAC) 20 mg capsule once daily. Problem List As Of Date 08/10/2021 Noted Resolved S/P ACL reconstruction [Z98.890] 11/01/2015 Shoulder stiffness [M25.619] 11/30/2016 Pain in joint of right shoulder [M25.511] 12/03/2016 Encounter Status:Closed by ASIA WEEMS on 08/12/21 [facility] CNOVon 07-27-2021 CNOV Office Visit (AGHWW1 ) KELLEE DANIEL ([id number]) 1970 F Date Time Provider Department 07/27/21 9:00 AM PERLA NELSON AGHWW1 During your visit today, we recorded the following information about you: Respiration Weight Height 16/minute 132.9 kg 1.689 m Perla Nelson MD 07/27/2021 9:00 AM Signed Chief Complaint: Left knee pain Consuting Physician: [...] weight maintenance, activity modifications and a home flexibility/strengthe jaqueline or walking program. I have discussed the [...] the knee - The pain causes daily funct (more content not included)... Normal [facility] Liana 07-05-2021 [facility] Telephone (AGPOB1) KELLEE DANIEL ([id number]) 1970 F Date Time Provider Department 07/05/21 [facility] During your visit today, we recorded the following information about you: Veritoyin Cramer [place] [facility] 07/05/2021 3:22 PM Signed Called to get additional info from patient. Left message Fariha Hodgson [facility] Triage [place] Subject Line Format: Orthopedics / [Provider Name or Open AND Body Part] ?/ [Issue] Patient has been identified by name and Date of (Y/N): y Patient: Kellee Daniel Date of : 1970 Previous Provider Seen: n/a Body Part(s) Identified: b/l knees Diagnosis/Reason For Visit: wants to see Dr Nelson for 2nd opinion on b/l knee arthritis. Sees Dr Hernandes @ [facility]; had MRI on 05/18/21. Has had previous surgeries on R knee: 2 meniscus and 1 ACL repairs. Most recent was ACL w/ Dr Cardona approx 10 yrs ago. Reason for the call/escalation: prev surgery If reason for call/escalation is discharge from ED/ER or Hospital, which facility was the patient seen at: n/a Was an appointment scheduled (Y/N): n Person calling if other than patient: n/a Return call to if other than patient: n/a Best contact number: [phone] Thank you, Fariha Bonner July 05, 2021 ?9:51 AM Allergies As of Date: 07/05/2021 Noted Allergy Reaction ASA (ASPIRIN) 10/05/2015 7 - Swelling Date Reviewed: 11/11/2016 Reviewed by: Karissa Nichols Ma - Fully Assessed Reason for Visit: Contact Center Call [[id number]] Prescriptions as of 07/05/2021 - lansoprazole (PREVACID) 30 mg capsule twice daily. - FLUoxetine (PROZAC) 20 mg capsule once daily. Problem List As Of Date 07/05/2021 Noted Resolved S/P ACL reconstruction [Z98.890] 11/01/2015 Shoulder stiffness [M25.619] 11/30/2016 Pain in joint of right shoulder [M25.511] 12/03/2016 Encounter Status:Closed by CHARITO SIDE [employer]AP[employer] VERITO WELCH on 07/05/21 [facility] CNDSNOTEon 02-15-2017 CNDSNOTE Discharge Note (enc) (PTMDRG) ----KELLEE DANIEL ([id number]) 1970 FDate Time Provider Department02/15/17 SANDRA SAMSON (PT) PTMDRG During your visit today, we recorded the following information about you:Sandra Samson PT 02/15/2017 11:06 AM [facility] DISCONTINUANCE OF CAREPlan of Care Period:Initial Evaluation Date: 11/24/16Last Visit Date: 12/26/16Therapy Program: The following is a summary of the interventions provided forthis episode of care; Individual PT.Assessment:The following is the goal status:Goals for Episode of Care: created on 11/24/2016 through 01/24/17.[place] in home exercise program. Met to datePatient will increase active ROM of R shoulder to equal left to allow pt to toachieve neutral postural alignment and improved performance of ADLs.met to datePatient will increase strength of R shoulder to 5/5 to allow for return toprior functional status.metPatient will increase flexibility of R shoulder complex to WNL to improveability to maintain proper posture, restore normal mechanics and decrease pain.progressingPt will report minimal to no pain or difficulty with problem tasks. progressingBased on most recent progress report, patient was progressing as expectedtoward functional goals based on documented subjective information on progressReason for Discontinuation of Care: Patient has not returned to therapy orscheduled additional follow-up appointments to indicate any issues.Jerod Padgett As of Date: 02/15/2017 Noted Allergy ReactionASA (ASPIRIN) 10/05/2015 7 - SwellingDate Reviewed: 11/11/2016Reviewed by: Karissa Nichols Ma - Fully AssessedReason for Visit: PT Discharge [752]Primary Visit Diagnosis:Pain in joint of right shoulder [M25.511]Prescription s as of 02/15/2017 Sig: LANSOPRAZOLE 30 MG CAPSULE,DE* twice daily. FLUOXETINE 20 MG CAPSULE once daily.Problem List As Of Date 02/15/2017 Noted Resolved S/P ACL reconstruction [Z98.890] INVALID FOR* Shoulder stiffness [M25.619] INVALID FOR* Pain in joint of right shoulder [M25.511] INVALID FOR* Status:Closed by SANDRA SAMSON on 02/15/17 [facility] PROGRESSon 02-15-2017 PROGRESS HNO ID: [id number]: Sandra (Pt) Lonnyervice: (none)Author Type: Physical TherapistType: Progress NotesFiled: 02/15/2017 11:06 AMNote Text:[facility] THERAPY DISCONTINUANCE OF CAREPlan of Care Period:Initial Evaluation Date: 11/24/16Last Visit Date: 12/26/16Therapy Program: The following is a summary of the interventions providedfor this episode of care; Individual PT.Assessment:The following is the goal status:Goals for Episode of Care: created on 11/24/2016 through 01/24/17.[place] in home exercise program. Met to datePatient will increase active ROM of R shoulder to equal left to allow ptto to achieve neutral postural alignment and improved performance ofADLs.met to datePatient will increase strength of R shoulder to 5/5 to allow for return toprior functional status.metPatient will increase flexibility of R shoulder complex to WNL to improveability to maintain proper posture, restore normal mechanics and decreasepain. progressingPt will report minimal to no pain or difficulty with problem tasks.progressingBase d on most recent progress report, patient was progressing as expectedtoward functional goals based on documented subjective information onprogressReason for Discontinuation of Care: Patient has not returned to therapy orscheduled additional follow-up appointments to indicate any issues.Sandra Samson, PT [facility] Vital Signs Date Time Vital Sign Value Performing Clinician Genny ibrahim 09-28-2023 14:39-0500 Body height 167.64 cm [facility] 09-28-2023 14:39-0500 Body mass index (BMI) [Ratio] 48.1 kg/m2 [facility] 09-28-2023 14:39-0500 Body temperature 97.5 [degF] [facility] 09-28-2023 14:39-0500 Body weight 135.17 kg [facility] 09-28-2023 14:39-0500 Diastolic blood pressure 80 mm[Hg] [facility] 09-28-2023 14:39-0500 Heart rate 80 /min [facility] 09-28-2023 14:39-0500 Respiratory rate 18 /min [facility] 09-28-2023 14:39-0500 SaO2% (BldA) [Mass fraction] 96 % [facility] 09-28-2023 14:39-0500 Systolic blood pressure 110 mm[Hg] [facility] 08-16-2023 14:37-0500 Body height 167.64 cm [facility] 08-16-2023 14:37-0500 Body mass index (BMI) [Ratio] 47.1 kg/m2 [facility] 08-16-2023 14:37-0500 Body temperature 97.9 [degF] [facility] 08-16-2023 14:37-0500 Body weight 132.44 kg [facility] 08-16-2023 14:37-0500 Diastolic blood pressure 80 mm[Hg] [facility] 08-16-2023 14:37-0500 Heart rate 80 /min [facility] 08-16-2023 14:37-0500 Respiratory rate 18 /min [facility] 08-16-2023 14:37-0500 SaO2% (BldA) [Mass fraction] 96 % [facility] 08-16-2023 14:37-0500 Systolic blood pressure 130 mm[Hg] [facility] 05-31-2023 18:06-0400 Body mass index (BMI) [Ratio] 48.1 kg/m2 [facility] 05-31-2023 18:06-0400 Body temperature 98.1 [degF] [facility] 05-31-2023 18:06-0400 Body weight 135.17 kg [facility] 05-31-2023 18:06-0400 Diastolic blood pressure 80 mm[Hg] [facility] 05-31-2023 18:06-0400 Heart rate 81 /min [facility] 05-31-2023 18:06-0400 Respiratory rate 18 /min [facility] 05-31-2023 18:06-0400 SaO2% (BldA) [Mass fraction] 98 % [facility] 05-31-2023 18:06-0400 Systolic blood pressure 120 mm[Hg] [facility] 08-18-2022 16:16-0500 Body height 170.18 cm [facility] Work Phone: 08-18-2022 16:16-0500 Body mass index (BMI) [Ratio] 46.3 kg/m2 [facility] Work Phone: 08-18-2022 16:16-0500 Body temperature 97.7 [degF] [facility] Work Phone: 08-18-2022 16:16-0500 Body weight 134.26 kg [facility] Work Phone: 08-18-2022 16:16-0500 Diastolic blood pressure 70 mm[Hg] [facility] Work Phone: 08-18-2022 16:16-0500 Heart rate 79 /min [facility] Work Phone: 08-18-2022 16:16-0500 Respiratory rate 18 /min [facility] Work Phone: 08-18-2022 16:16-0500 SaO2% (BldA) [Mass fraction] 97 % [facility] Work Phone: 08-18-2022 16:16-0500 Systolic blood pressure 100 mm[Hg] [facility] Work Phone: Encounters Encounter Date Encounter Type Care Provider Facility Start: 01-08-2024 End: 01-08-2024 ambulatory Geoff Kirkland Facility:[facility] Start: 01-04-2024 End: 01-04-2024 ambulatory Son Yoon Facility:[facility] Start: 11-14-2023 End: 11-14-2023 ambulatory Geoff Kirkland [facility] Work Phone: Start: 11-14-2023 End: 11-14-2023 Patient encounter procedure [facility] H Work Phone: Start: 08-25-2023 End: 08-25-2023 ambulatory Candy Gallo NP [facility] Work Phone: Start: 08-25-2023 End: 08-25-2023 Patient encounter procedure [facility] Work Phone: Start: 08-16-2023 End: 08-16-2023 Patient encounter procedure [facility]Laboratory[facility] Specimen Work Phone: Start: 08-16-2023 End: 08-17-2023 ambulatory Candy Gallo PIER WORKER [facility] Work Phone: Start: 01-27-2023 End: 01-27-2023 ambulatory Pramod ROY Facility:[facility] Start: 08-18-2022 End: 08-18-2022 ambulatory [facility] Work Phone: Start: 08-18-2022 End: 08-18-2022 Patient encounter procedure [facility] Specimen Start: 08-05-2021 Patient encounter status [facility] Procedures Date Procedure Procedure Detail Performing Clinician Start: 11-14-2023 CT of face Start: 08-25-2023 Screening mammography Plan of Treatment Date Care Activity Detail Author Screening mammography [facility] Payers Date Payer Category Payer Self-pay [id number] 2023 Unknown [id number] 2016 Unknown [id number] Unknown [id number] 2.16.8 [id number] Unknown [id number] 2.16.8 [id number] Unknown [id number] 2.16.8 [id number] Unknown [id number] 2.16.8 [id number] Unknown [id number] 2.16.8 [id number] Unknown [id number] 2.16.8 [id number] Social History Date Type Detail Facility Start: 08-12-2020 End: 09-28-2023 Tobacco smoking status NCIS Unknown if ever smoked [facility] Start: 1970 Sex Assigned At Female W [facility] Discharge summary note 01-08-2024 Note Date & Type Note Facility 01-08-2024 Note [facility] Medical Records Department [address] [place] [id number] Discharge Summary 01/08/24 1007 MR#: [id number] Acct: [id number] Name: KELLEE DANIEL Rep #: [id number] : 1970 53 From: Geoff Kirkland MD PCP: WILLIAM Schwartz Status:[facility] Location: [place] [address] Providers Primary Care Physician: WILLIAM Schwartz Reason For Visit: Functional Endoscopoic Sinus Surgery, Navigation Medications at Discharge Home Medications lansoprazole 30 mg capsule,delayed release 30 mg PO BID 07/26/18 hydroxyzine HCl 10 mg tablet 10 mg PO TID-QID PRN anxiety #45 tabs 08/18/22 rimegepant 75 mg disintegrating tablet (Nurtec ODT) 75 mg PO ONCE PRN migraine headache #10 tabs 04/06/23 fluoxetine 20 mg capsule 40 mg (2 x 20 mg) PO DAILY #180 caps 05/31/23 levothyroxine 75 mcg tablet 75 mcg PO DAILY #90 tabs 08/17/23 albuterol sulfate 90 mcg/actuation aerosol inhaler (ProAir HFA) 2 puff inhalation Q6H PRN shortness of breath or wheezing 01/01/24 rosuvastatin 20 mg tablet 20 mg PO QHS 01/01/24 Weight / BMI Weight Weight: 135 kg Body Mass Index (BMI) 48.0 ABG / Lab / Microbiology Data 01/04/24 13:45 01/04/24 13:45 D/C Instructions Discharge Diet: No restrictions Discharge Activity: Return to Normal Activity Additional Activity Instructions: No nose blowing Additional Instructions: Start saline irrigation tomorrow. Irrigate 4x/day Please Follow Up With: Geoff Kirkland MD When: next week Meaningful Use Info Meaningful Use Meaningful Use Diagnoses (Choose all that apply): None applicable Ischemic Stroke Statin Dosing Therapy Reference: STATIN DOSE THERAPY REFERENCE: * Patients > 75 years receive moderate or high dose statin therapy. * Patients 75 years or YOUNGER should receive HIGH intensity statin dose unless contraindicated. You will be required to document reason for non-treatment if statin daily dose does not meet guidelines. HIGH DOSE STATIN THERAPY DAILY Atorvastatin > than or = to 40 mg Rosuvastatin > than or = to 20 mg Amlodipine + Atorvastatin > than or = to 2.5/40 mg Ezetimibe + Simvastatin 10/80 mg Simvastatin 80mg Discharge Plan Admission Attending Provider: Geoff Kirkland Primary Care Provider: Candy Gallo NP Instructions Print Language: Luxembourgish Discharge Orders/Prescriptions Prescriptions: No Action lansoprazole 30 mg capsule,delayed release(DR/EC) 30 mg PO BID hydroxyzine HCl 10 mg tablet 10 mg PO TID-QID PRN (Reason: anxiety) Qty: 45 12RF Nurtec ODT 75 mg tablet,disintegrating 75 mg PO ONCE PRN (Reason: migraine headache) Qty: 10 12RF Rx Instructions: as a single dose fluoxetine 20 mg capsule 40 mg PO DAILY Qty: 180 3RF levothyroxine 75 mcg tablet 75 mcg PO DAILY Qty: 90 3RF albuterol sulfate [ProAir HFA] 90 mcg/actuation HFA aerosol inhaler 2 puff INHALATION Q6H PRN (Reason: shortness of breath or wheezing) rosuvastatin 20 mg tablet 20 mg PO QHS Other Ambulatory Orders: 12 Lead EKG (Routine) Timeframe: 20240104 Location: None Selected Ordered By: Dr. Geoff Kirkland Referrals / Follow Up: Candy Gallo PIER WORKER, PIER WORKER-C [Primary Care Provider] - Disposition Disposition (needs filled in before D/C Order can be placed): Home, Self Care 01/08/24 1008 Cosigner Signature (if applicable): CC: PIER WORKER-C Candy Gallo; Dr. Geoff Kirkland MD Signed [facility] Progress note 07-27-2021 Note Date & Type Note Facility 07-27-2021 Note HNO ID: [id number] Author: Perla Nelson MD Service: ? Author Type: Physician [...] when appropriate, etienne (more content not included)... [facility] Evaluation note Note Date & Type Note Facility Evaluation note Diagnosis Onset Date Anxiety acute Hypothyroidism (acquired) [place] [facility] Work Phone: Evaluation note Note Date & Type Note Facility Evaluation note Diagnosis Onset Date Anxiety acute Maxillary sinusitis acute Right acute otitis media acu te Bilateral acute otitis media acute Screening mammogram for breast cancer acute Morbid (severe) obesity due to excess calories chronic [facility] Work Phone: Evaluation note Note Date & Type Note Facility Evaluation note Diagnosis Onset Date Bilateral acute otitis media acute Screening mammogram for breast cancer acute Morbid (severe) obesity due to excess calories chronic Left acute otitis media acut e Maxillary sinusitis acute [facility] Work Phone: Summary Purpose Family History No Family History Records Found Relationship Condition Age at Onset Recorded Date/T [place] Not Specified High blood cholesterol Unknown Diverticulitis Unknown Cardiac disease Unknown Presence of cardiac pacemaker Unknown Malignant neoplasm Unknown Hypertension Unknown mother Coronary artery disease Unknown Advance Directives No Advanced Directives Records FoundNo Advanced Directives Records FoundNo Advanced Directives Records Found Chief Complaint and Reason for Visit Chief Complaint medication refills Reason for Visit Anxiety Hypothyroidism (acquired) Chief Complaint medication refills S inus & ear complaint medication refills/labs Reason for Visit Anxiety Maxillary sinusitis Right acute otitis media Bilateral acute otitis media Screening mammogram for breast cancer Morbid (severe) obesity due to excess calories Chief Complaint medication refills S inus & ear complaint medication refills/labs SCREENING Reason for Visit Anxiety Maxillary sinusitis Right acute otitis media Bilateral acute otitis media Screening mammogram for breast cancer Morbid (severe) obesity due to excess calories Chief Complaint medication refills/l abs SCREENING Sinus Pain SINUSITIS Reason for Visit Bilateral acute otit is media Screening mammogram for breast cancer Morbid (severe) obesity due to excess calories Left acute otitis media Maxillary sinusitis Additional Source Comments INFORMATION SOURCE (unrecogn ized section and content) DATE CREATED AUTHOR 02/14/2018 [facility] DATE CREATED AUTHOR AUTHOR'S ORGANIZ ATION 08/13/2021 [facility] DATE CREATED AUTHOR AUTHOR'S ORGANIZ ATION 01/16/2024 [facility] Goals (unrecognized section and content) Goals may be documented in a n alternate sectionGoals may be documented in an alternate sectionGoals may be documented in an alternate sectionGoals may be documented in an alternate section Care Teams (unrecognized sec tion and content) Team Status: Active Member Role Status Dates Candy Gallo PIER WORKER, PIER WORKER-C Family Provider Active Candy Gallo NP, PIER WORKER-C Primary Care Provider Active Team Status: Inactive Member Role Status Dates Candy Gallo PIER WORKER, PIER WORKER-C Primary Care Pr ovider, Attending Provider, Referring Provider Active Team Status: Inactive Member Role Status Dates Candy Gallo NP, PIER WORKER-C Primary Care Provider, Attend ing Provider Active Team Status: Inactive Member Role Status Dates Candy Gallo NP, PIER WORKER-C Primary Care Provider Active Dr. Geoff Kirkland MD Attending Provider, Referring Pr ovider Active FOR RECORDS PERTAINING TO PATIENTS WHO ARE [...] BE BASED ON THE PRIMARY CLINICAL RECORDS. [employer] [facility]. provides no warranty or guarantee of the accuracy or completeness of information in this document.
[2025-07-30 21:45] LABS: Hematocrit 36.0 % (37-47); Hemoglobin 11.8 g/dL (12.0-15.0); Immature Granulocytes Count 0.030 X10^3/uL (0.0-0.0); Mean Corp Hgb Conc 32.8 g/dL (32-36); Mean Corpuscular Volume 84.9 fL (81-99); Mean Platelet Vol. 10.5 fl (6.2-12.0); NRBC Flagged by Analyzer 0 % (0-5); Platelet Count 342 K/mm3 (150-450); RBC Distribution Width CV 13.7 % (11.6-14.6); RBC Distribution Width SD 42.5 fl (35.1-43.9); Red Blood Count 4.24 M/mm3 (4.2-5.4); White Blood Count 8.4 K/mm3 (4.4-11.0)
[2025-07-30 22:05] LABS: AST(SGOT) 18 U/L (<=31); Alanine Aminotransfer ALT/SGPT 18 U/L (<=34); Albumin, Serum 3.8 g/dL (3.5-5.0); Alkaline Phosphatase 72 U/L (35-104); Anion Gap 9 (5-15); BUN 14 mg/dL (4-19); BUN/Creat Ratio 19.1 RATIO (10-20); Calcium,Total 8.8 mg/dL (7.6-11.0); Carbon Dioxide 26.1 mmol/L (21.0-32.0); Chloride 105 mmol/L (98-108); Globulin 3.4 g/dL (2.2-4.2); Glucose 96 mg/dL (70-99); Potassium 4.6 mmol/L (3.3-5.1)
[2025-07-30 22:52] LABS: Cholesterol 115 mg/dL (<=200); Low Density Lipoprotein Calc. 55 mg/dL; Triglycerides 158 mg/dL; Very Low Density Lipoprotein 32 mg/dL (5-40); cholesterol:hdl ratio screen 3.54
== END | disposition home or self-care (01) ==
PROVIDERS: PCP Nurse Practitioner; Referring Provider Nurse Practitioner; Visit Provider Nurse Practitioner
DX: Z00.00 Encounter for general adult medical examination without abnormal findings (principal)
CPT/HCPCS: 80053; 80061; 85025